=== PATIENT | female | born 1945 | race Caucasian/White ===

== ENCOUNTER 2022-04-24 15:25 | Observation (INO) | payer MEDICAID, MEDICARE ==
[~2022-04-24] VITALS: Ht 162 cm; Wt 83.3 kg
--- NOTE | 2022-04-24 15:42 | ED General ---
General Chief Complaint: Altered Mental Status Stated Complaint: AMS Nursing Triage Note: PT BROUGHT IN BY [facility] FROM [facility] WALK IN WITH COMPLAINT OF AMS, FLU A, POSSIBLE UTI. STATES PT HAS BEEN HAVING INCREASING CONFUSION FOR THE LAST TWO WEEKS. FELL AT HOME THIS MORNING. Source of Information: Patient, EMS, RN/MD Exam Limitations: No Limitations History of Present Illness Date Seen by Provider: Apr 24, 2022 Time Seen by Provider: 15:26 Initial Comments 76-year-old female with past medical history of hypothyroidism coming in via EMS from [facility] walk-in clinic due to concerns for confusion. The patient was in the bathroom earlier today, fell, landed on her right side. Having right hip pain at this time. Got herself up and has been ambulatory since then. States she did not hit her head or pass out. She does not take any blood thinners. While at the clinic she tested positive for influenza A, and they were also concerned she could have a UTI based on the smell of her urine. She has not had any medicines as of yet today other than her thyroid medicine. Denies any headache, vision changes, neck pain, back pain, chest pain, shortness of breath, abdominal pain, nausea, vomiting, diarrhea, focal weakness or numbness, rash, or any other concerns Allergies and Home Medications Allergies Coded Allergies: [id number]-BlT Reductase Inhibitor (Verified Allergy, Unknown, 04/24/22) Patient Home Medication List Home Medication List Reviewed: Yes Review of Systems Review of Systems Constitutional: malaise EENTM: No blurred vision Respiratory: cough; No short of breath Cardiovascular: No chest pain Genitourinary: no symptoms reported Musculoskeletal: see HPI Skin: no symptoms reported Psychiatric/Neurological: No Symptoms Reported Hematologic/Lymphatic: No Symptoms Reported Immunological/Allergic: no symptoms reported All Other Systems Reviewed Negative Unless Noted: Yes Past Kygkesm-Udrzxg-Ejevtj Hx Patient Social History Tobacco Use?: No Use of E-Cig and/or Vaping dev: No Substance use?: No Alcohol Use?: No Pt feels they are or have been: No Past Medical History Surgeries: Yes CABG Reproductive Disorders: No Physical Exam Vital Signs Vital Signs - First Documented 04/24/22 15:26 Temp 38.0 Pulse 88 Resp 25 B/P (MAP) 163/64 (97) Pulse Ox 91 O2 Delivery Room Air Capillary Refill : Less Than 3 Seconds Height, Weight, BMI Height: '" Weight: lbs. oz. kg; 25.00 BMI Method: General Appearance: No Apparent Distress, WD/WN Eyes: Bilateral Eye Normal Inspection HEENT: PERRL/EOMI, Normal ENT Inspection, Pharynx Normal Neck: Full Range of Motion, Normal Inspection, Non Tender, Supple Respiratory: Chest Non Tender, Lungs Clear, Normal Breath Sounds, No Accessory Muscle Use, No Respiratory Distress Cardiovascular: Regular Rate, Rhythm, No Edema, Normal Peripheral Pulses Gastrointestinal: Normal Bowel Sounds, Non Tender, Soft; No Distended, No Guarding Back: Normal Inspection, No CVA Tenderness, No Vertebral Tenderness Extremity: Normal Capillary Refill, Normal Inspection, Normal Range of Motion, Non Tender, No Calf Tenderness, No Pedal Edema Neurologic/Psychiatric: Alert, Oriented x3, No Motor/Sensory Deficits, Normal Mood/Affect, procurement consultant II-XII Norm as Tested Skin: Normal Color, Warm/Dry Lymphatic: No Adenopathy Progress/Results/Core Measures Suspected Sepsis SIRS Temperature: Pulse: 88 Respiratory Rate: 25 Laboratory Tests 04/24/22 15:32: White Blood Count 10.7 Blood Pressure 163 /64 Mean: 97 Laboratory Tests 04/24/22 15:32: Creatinine 1.00, INR Comment 1.1, Platelet Count 241, Total Bilirubin 0.4 Results/Orders Lab Results Laboratory Tests Test 04/24/22 15:32 04/24/22 15:40 Range/Units White Blood Count 10.7 4.3-11.0 10^3/uL Red Blood Count 3.98 3.80-5.11 10^6/uL Hemoglobin 12.2 11.5-16.0 g/dL Hematocrit 38 35-52 % Mean Corpuscular Volume 96 80-99 fL Mean Corpuscular Hemoglobin 31 25-34 pg Mean Corpuscular Hemoglobin Concent 32 32-36 g/dL Red Cell Distribution Width 12.9 10.0-14.5 % Platelet Count 241 130-400 10^3/uL Mean Platelet Volume 10.4 9.0-12.2 fL Immature Granulocyte % (Auto) 0 % Neutrophils (%) (Auto) 78 H 42-75 % Lymphocytes (%) (Auto) 9 L 12-44 % Monocytes (%) (Auto) 13 H 0-12 % Eosinophils (%) (Auto) 0 0-10 % Basophils (%) (Auto) 0 0-10 % Neutrophils # (Auto) 8.3 H 1.8-7.8 X 10^3 Lymphocytes # (Auto) 1.0 1.0-4.0 X 10^3 Monocytes # (Auto) 1.4 H 0.0-1.0 X 10^3 Eosinophils # (Auto) 0.0 0.0-0.3 10^3/uL Basophils # (Auto) 0.0 0.0-0.1 10^3/uL Immature Granulocyte # (Auto) 0.0 0.0-0.1 10^3/uL Prothrombin Time 14.4 12.2-14.7 SEC INR Comment 1.1 0.8-1.4 Sodium Level 138 135-145 MMOL/L Potassium Level 3.3 L 3.6-5.0 MMOL/L Chloride Level 104 98-107 MMOL/L Carbon Dioxide Level 23 21-32 MMOL/L Anion Gap 11 5-14 MMOL/L Blood Urea Nitrogen 28 H 7-18 MG/DL Creatinine 1.00 0.60-1.30 MG/DL Estimat Glomerular Filtration Rate 59 BUN/Creatinine Ratio 28 Glucose Level 107 H 70-105 MG/DL Calcium Level 8.8 8.5-10.1 MG/DL Corrected Calcium 8.8 8.5-10.1 MG/DL Magnesium Level 2.2 1.6-2.4 MG/DL Total Bilirubin 0.4 0.1-1.0 MG/DL Aspartate Amino Transf (AST/SGOT) 31 5-34 U/L Alanine Aminotransferase (ALT/SGPT) 19 0-55 U/L Alkaline Phosphatase 52 40-136 U/L Troponin I 0.039 H <0.028 NG/ML Total Protein 6.8 6.4-8.2 GM/DL Albumin 4.0 3.2-4.5 GM/DL Lipase 13 8-78 U/L Urine Color YELLOW Urine Clarity CLEAR Urine pH 6.0 5-9 Urine Specific [place] 1.025 H 1.016-1.022 Urine Protein 1+ H NEGATIVE Urine Glucose (UA) NEGATIVE NEGATIVE Urine Ketones 1+ H NEGATIVE Urine Nitrite NEGATIVE NEGATIVE Urine Bilirubin NEGATIVE NEGATIVE Urine Urobilinogen 0.2 < = 1.0 MG/DL Urine Leukocyte Esterase NEGATIVE NEGATIVE Urine RBC (Auto) 1+ H NEGATIVE Urine RBC NONE /HPF Urine WBC 0-2 /HPF Urine Squamous Epithelial Cells NONE /HPF Urine Renal Epithelial Cells NONE /HPF Urine Crystals NONE /LPF Urine Bacteria NEGATIVE /HPF Urine Casts NONE /LPF Urine Mucus SMALL H /LPF Urine Culture Indicated NO Urine Opiates Screen NEGATIVE NEGATIVE Urine Oxycodone Screen NEGATIVE NEGATIVE Urine Methadone Screen NEGATIVE NEGATIVE Urine Propoxyphene Screen NEGATIVE NEGATIVE Urine Barbiturates Screen NEGATIVE NEGATIVE Ur Tricyclic Antidepressants Screen NEGATIVE NEGATIVE Urine Phencyclidine Screen NEGATIVE NEGATIVE Urine Amphetamines Screen NEGATIVE NEGATIVE Urine Methamphetamines Screen NEGATIVE NEGATIVE Urine Benzodiazepines Screen NEGATIVE NEGATIVE Urine Cocaine Screen NEGATIVE NEGATIVE Urine Cannabinoids Screen NEGATIVE NEGATIVE My Orders Orders - EDY BLAS MD Ct Head Wo (04/24/22 15:35) Cbc With Automated Diff (04/24/22 15:35) Comprehensive Metabolic Panel (04/24/22 15:35) Drug Screen Stat (Urine) (04/24/22 15:35) Lipase (04/24/22 15:35) Magnesium (04/24/22 15:35) Protime With Inr (04/24/22 15:35) Ua Culture If Indicated (04/24/22 15:35) Chest 1 View, Ap/Pa Only (04/24/22 15:35) Pelvis With Right Hip 2-3views (04/24/22 15:35) Acetaminophen Tablet (Tylenol Tablet) (04/24/22 15:45) Troponin I Amanda (04/24/22 15:35) Ekg Tracing (04/24/22 15:35) Thyroid Stimulating Hormone (04/24/22 16:26) Ed Admission (Communication) (04/24/22 16:36) Medications Given in ED Current Medications Medications Dose Ordered Sig/Faustino Route Start Time Stop Time Status Last Admin Dose Admin Acetaminophen 1,000 mg ONCE ONCE PO 04/24/22 15:45 04/24/22 15:46 DC 04/24/22 15:50 1,000 MG Vital Signs/I&O 04/24/22 04/24/22 15:26 15:26 Temp 38.0 Pulse 88 Resp 25 B/P (MAP) 163/64 (97) Pulse Ox 91 O2 Delivery Room Air Room Air Capillary Refill : Less Than 3 Seconds Blood Pressure Mean: 97 Progress Note : Progress Note 76-year-old female with above history coming in after a fall from questionable syncope versus mechanical. The patient was febrile on presentation but otherwise with unremarkable vital signs. EKG normal sinus with no acute ischemic changes. IV was placed and basic labs were obtained including cardiac biomarkers. Troponin was positive with this. She also has influenza A so this could be myocarditis versus type II NSTEMI from demand in the setting of her influenza. CT head with no acute findings. I discussed the case with Dr. Galeana who admit the patient under observation status for further evaluation and management. I then contacted Dr. Sotelo for consultation. ECG Initial ECG Impression Date: Apr 24, 2022 Initial ECG Impression Time: 15:45 Initial ECG Rate: 87 Initial ECG Rhythm: Normal Sinus Comment Narrow QRS, normal axis, no significant ST changes or T wave abnormalities. Diagnostic Imaging Diagonstic Imaging: Xray (chest, pelvis, right hip), CT (head) Comments NAME: SAWYER CORDERO [facility] REC#: [id number] PT STATUS: REG ER : 1945 PHYSICIAN: EDY BLAS MD ADMIT DATE: 04/24/22/ER Draft Date of Exam:04/24/22 PELVIS WITH RIGHT HIP 2-3VIEWS iNDICATION: Fall, pain. FINDINGS: AP pelvis and two-view right hip showed no bony avulsion, articular collapse or other fracture pattern. Atherosclerotic vascular calcifications and surgical clips chronic. No symphyseal or SI joint diastases. Air-containing rectal vault nondisplaced. IMPRESSION: No acute-appearing abnormality. Dictated on workstation # [id number] Dict: 04/24/22 1626 Trans: 04/24/22 1629 [facility] [id number] Interpreted by: SALLY GARRETT Electronically signed by: [facility] [place], [place] NAME: SAWYER CORDERO [facility] REC#: [id number] PT STATUS: REG ER : 1945 PHYSICIAN: EDY BLAS MD ADMIT DATE: 04/24/22/ER Signed Date of Exam:04/24/22 CHEST 1 VIEW, AP/PA ONLY CHEST 1 VIEW, AP/PA ONLY Indication: Chest trauma Comparison: None available. Findings: No focal airspace disease in the visualized lungs. No pleural effusion or pneumothorax. Cardiomegaly with changes of CABG. No displaced fracture in the visualized ribs. Impression: 1. No acute cardiopulmonary process by portable radiography. Dictated by: Dictated on workstation # [id number] Dict: 04/24/221624 Trans: 04/24/22 1626 [facility] [id number] Interpreted by: LINDSAY SINGH MD Electronically signed by: LINDSAY SINGH MD 04/24/221625 [facility] [place], [place] NAME: SAWYER CORDERO [facility] REC#: [id number] PT STATUS: REG ER : 1945 PHYSICIAN: EDY BLAS MD ADMIT DATE: 04/24/22/ER Draft Date of Exam:04/24/22 CT HEAD WO CLINICAL INDICATION: Patient complains of altered mental status, flu. Possible UTI. Patient has been having increased confusion in the last two weeks. Patient fell at home this morning. EXAM: Axial CT scan of the brain without IV contrast with coronal and sagittal reformatted images. Auto Exposure Controls were utilized during the CT exam to meet ALARA standards for radiation dose reduction. COMPARISON: None FINDINGS: There is no evidence of acute cerebral infarct, intracranial hemorrhage, or gross mass effect. The brain parenchymal volume appears appropriate for patient's age. There is a 5 mm chronic infarct involving the anterior aspect of left caudate. Mild chronic small vessel ischemic disease changes are seen. There is normal samaniego-white matter distinction. There is no significant midline shift or herniation. Empty sella turcica is noted. There is no evidence of hydrocephalus. The basal cisterns are unremarkable. The skull, extracranial soft tissue, and orbits are unremarkable. There is minimal mucosal thickening involving the ethmoid sinus. Temporal bones show no significant abnormality. IMPRESSION: 1: Age-related brain parenchymal changes with no CT evidence of acute intracranial process. There is no intracranial hemorrhage. 2: There is small chronic lacunar infarct involving the left caudate. Dictated on workstation # [id number] Dict: 04/24/221624 Trans: 04/24/22 1637 [facility] [id number] Interpreted by: AYALA VARGAS MD Electronically signed by: Departure Impression Primary Impression: NSTEMI (non-ST elevated myocardial infarction) Additional Impression: Influenza A Disposition: 09 ADMITTED INPATIENT Condition: Stable Admissions Decision to Admit Reason: Admit from ER (General) Decision to Admit/Date: Apr 24, 2022 Time/Decision to Admit Time: 16:25 Departure-Patient Inst. Referrals: NO,LOCAL PHYSICIAN (PCP/Family) Primary Care Physician EDY BLAS MD Apr 24, 2022 15:42
[2022-04-24] MEDS ORDERED: ACETAMINOPHEN 500 MG TAB (TYLENOL) PO ONE (15:45)
[2022-04-24 15:46] LABS: BASOPHILS % (AUTO) 0 % (0-10); EOSINOPHILS % (AUTO) 0 % (0-10); HEMATOCRIT 38 % (35-52); HEMOGLOBIN 12.2 g/dL (11.5-16.0); LYMPHOCYTES % (AUTO) 9 % (12-44); MEAN CORPUSCULAR HEMOGLOBIN 31 pg (25-34); MEAN CORPUSCULAR HGB CONC 32 g/dL (32-36); MEAN CORPUSCULAR VOLUME 96 fL (80-99); MEAN PLATELET VOLUME 10.4 fL (9.0-12.2); MONOCYTES # (AUTO) 1.4 X 10^3 (0.0-1.0); MONOCYTES % (AUTO) 13 % (0-12); NEUTROPHILS # (AUTO) 8.3 X 10^3 (1.8-7.8); NEUTROPHILS % (AUTO) 78 % (42-75); PLATELET COUNT 241 10^3/uL (130-400); WHITE BLOOD COUNT 10.7 10^3/uL (4.3-11.0)
[2022-04-24 15:47] LABS: BILIRUBIN,URINE NEGATIVE (NEGATIVE); CLARITY,URINE CLEAR; COLOR,URINE YELLOW; GLUCOSE, URINE (UA) NEGATIVE (NEGATIVE); KETONES,URINE 1+ (NEGATIVE); LEUKOCYTE ESTERASE ,URINE NEGATIVE (NEGATIVE); NITRITE,URINE NEGATIVE (NEGATIVE); PROTEIN,URINE 1+ (NEGATIVE)
[2022-04-24 15:54] LABS: POTASSIUM 3.3 MMOL/L (3.6-5.0)
[2022-04-24 15:55] LABS: BACTERIA,URINE NEGATIVE /HPF; WBC,URINE 0-2 /HPF
[2022-04-24 15:56] LABS: CALCIUM 8.8 MG/DL (8.5-10.1)
[2022-04-24 15:57] LABS: TOTAL PROTEIN 6.8 GM/DL (6.4-8.2)
[2022-04-24 15:59] LABS: BILIRUBIN,TOTAL 0.4 MG/DL (0.1-1.0); INR 1.1 (0.8-1.4); PROTHROMBIN TIME PATIENT 14.4 SEC (12.2-14.7)
[2022-04-24 16:00] LABS: AMPHETAMINE SCREEN, URINE NEGATIVE (NEGATIVE); BARBITURATE SCREEN URINE NEGATIVE (NEGATIVE); BENZODIAZEPINES SCREEN URINE NEGATIVE (NEGATIVE); CANNABINOID SCREEN, URINE NEGATIVE (NEGATIVE); COCAINE SCREEN URINE NEGATIVE (NEGATIVE); METHADONE STAT NEGATIVE (NEGATIVE); OPIATE SCREEN URINE NEGATIVE (NEGATIVE); OXYCODONE STAT NEGATIVE (NEGATIVE); PROPOXYPHENE STAT NEGATIVE (NEGATIVE); TRICYCLIC ANTIDEPRESSANTS SCRE NEGATIVE (NEGATIVE)
[2022-04-24 16:03] LABS: MAGNESIUM 2.2 MG/DL (1.6-2.4)
--- NOTE | 2022-04-24 16:28 | Diagnostic Imaging Report ---
CHEST 1 VIEW, AP/PA ONLY Indication: Chest trauma Comparison: None available. Findings: No focal airspace disease in the visualized lungs. No pleural effusion or pneumothorax. Cardiomegaly with changes of CABG. No displaced fracture in the visualized ribs. Impression: 1. No acute cardiopulmonary process by portable radiography. Dictated by: Dictated on workstation # [id number]
--- NOTE | 2022-04-24 16:29 | Diagnostic Imaging Report ---
iNDICATION: Fall, pain. FINDINGS: AP pelvis and two-view right hip showed no bony avulsion, articular collapse or other fracture pattern. Atherosclerotic vascular calcifications and surgical clips chronic. No symphyseal or SI joint diastases. Air-containing rectal vault nondisplaced. IMPRESSION: No acute-appearing abnormality. Dictated by: Dictated on workstation # [id number]
--- NOTE | 2022-04-24 16:38 | Diagnostic Imaging Report ---
CLINICAL INDICATION: Patient complains of altered mental status, flu. Possible UTI. Patient has been having increased confusion in the last two weeks. Patient fell at home this morning. EXAM: Axial CT scan of the brain without IV contrast with coronal and sagittal reformatted images. Auto Exposure Controls were utilized during the CT exam to meet ALARA standards for radiation dose reduction. COMPARISON: None FINDINGS: There is no evidence of acute cerebral infarct, intracranial hemorrhage, or gross mass effect. The brain parenchymal volume appears appropriate for patient's age. There is a 5 mm chronic infarct involving the anterior aspect of left caudate. Mild chronic small vessel ischemic disease changes are seen. There is normal samnaiego-white matter distinction. There is no significant midline shift or herniation. Empty sella turcica is noted. There is no evidence of hydrocephalus. The basal cisterns are unremarkable. The skull, extracranial soft tissue, and orbits are unremarkable. There is minimal mucosal thickening involving the ethmoid sinus. Temporal bones show no significant abnormality. IMPRESSION: 1: Age-related brain parenchymal changes with no CT evidence of acute intracranial process. There is no intracranial hemorrhage. 2: There is small chronic lacunar infarct involving the left caudate. Dictated by: Dictated on workstation # [id number]
[2022-04-24 17:15] VITALS: BP 146/95
[2022-04-24 17:30] VITALS: BP 143/76
[2022-04-24] MEDS ORDERED: NS IV 1000 ML 1,000 ML ONE (17:39)
[2022-04-24 17:45] VITALS: BP 157/81
[2022-04-24] MEDS ORDERED: ACETAMINOPHEN 325 MG TABLET PO PRN ×2 (17:45)
[2022-04-24] MEDS ORDERED: diphenhydrAMINE 25 MG TAB (BENADRYL) PO PRN ×2 (17:45)
[2022-04-24] MEDS ORDERED: morphine IMMEDIATE RELEASE 15 MG TABLET PO PRN ×2 (17:45)
[2022-04-24] MEDS ORDERED: cloNIDine 0.1 MG (CATAPRES) TAB PO PRN ×2 (17:45)
[2022-04-24] MEDS ORDERED: LACTULOSE SYRUP 10GM/15ML (ENULOSE) 30ML UDC PO PRN ×2 (17:45)
[2022-04-24] MEDS ORDERED: PATIENT MAY USE OWN MEDS, ALL PO SCH ×2 (17:45)
[2022-04-24] MEDS ORDERED: diphenhydrAMINE 50 MG/ML INJ (BENADRYL) IVP PRN ×2 (17:45)
[2022-04-24] MEDS ORDERED: ONDANSETRON 4 MG/2 ML (SDV) Z0FRAN IV PRN ×2 (17:45)
[2022-04-24] MEDS ORDERED: CALCIUM CARBONATE 500 MG (TUMS) TAB.CHEW PO PRN ×2 (17:45)
[2022-04-24] MEDS ORDERED: ANTACID SUSP 30 ML UDC (MYLANTA) PO PRN ×2 (17:45)
[2022-04-24] MEDS ORDERED: morphine INJ 4 MG/ML 1 ML (VIAL/SYRINGE) IV PRN ×2 (17:45)
[2022-04-24] MEDS ORDERED: MELATONIN 3 MG TABLET PO PRN ×2 (17:45)
[2022-04-24] MEDS ORDERED: ENOXAPARIN 40 MG/0.4 ML (LOVENOX) SYR SC SCH (17:45)
[2022-04-24] MEDS ORDERED: ALPRAZolam 0.5 MG (XANAX) TAB PO PRN ×2 (17:45)
[2022-04-24] MEDS ORDERED: MILK OF MAGNESIA 400 MG/5 ML 30 ML UDC PO PRN ×2 (17:45)
[2022-04-24] MEDS ORDERED: polyethylene glycoL POWDER 17 GM (MIRALAX) PACK PO PRN ×2 (17:45)
[2022-04-24] MEDS ORDERED: NITROGLYCERIN 0.4 MG SL TABS BTL 25'S SL PRN ×2 (17:45)
[2022-04-24] MEDS ORDERED: BISACODYL 10 MG SUPP (DULCOLAX) PR PRN ×2 (17:45)
[2022-04-24] MEDS ORDERED: ONDANSETRON 4 MG (ZOFRAN) ORAL DISSOLVE TAB PO PRN ×2 (17:45)
[2022-04-24] MEDS ORDERED: NS IV 1000 ML 1,000 ML IV SCH ×2 (17:45)
[2022-04-24 18:00] VITALS: BP 167/81
[2022-04-24] MEDS: ENOXAPARIN 40 MG/0.4 ML (LOVENOX) SYR SC SCH (18:07)
[2022-04-24 20:00] VITALS: BP 140/68
[2022-04-24] MEDS: SENNOSIDES 8.6 MG (SENOKOT) TAB PO SCH (20:32)
[2022-04-24] MEDS: DOCUSATE SODIUM 100 MG (COLACE) CAP PO SCH (20:32)
[2022-04-24] MEDS: OSELTAMIVIR 30 MG (TAMIFLU) CAPSULE PO SCH (20:32)
[2022-04-24] MEDS ORDERED: SENNOSIDES 8.6 MG (SENOKOT) TAB PO SCH (21:00)
[2022-04-24] MEDS ORDERED: OSELTAMIVIR 75 MG (TAMIFLU) CAPSULE PO SCH ×2 (21:00)
[2022-04-24] MEDS ORDERED: DOCUSATE SODIUM 100 MG (COLACE) CAP PO SCH (21:00)
[2022-04-24 23:48] VITALS: BP 125/61
[2022-04-25] VITALS (8 sets, daily range): BP systolic 83–138; BP diastolic 51–81
[2022-04-25 05:15] LABS: BASOPHILS % (AUTO) 0 % (0-10); EOSINOPHILS % (AUTO) 0 % (0-10); HEMATOCRIT 39 % (35-52); HEMOGLOBIN 12.2 g/dL (11.5-16.0); LYMPHOCYTES # (AUTO) 0.9 10^3/uL (1.0-4.0); LYMPHOCYTES % (AUTO) 9 % (12-44); MEAN CORPUSCULAR HEMOGLOBIN 31 pg (25-34); MEAN CORPUSCULAR HGB CONC 32 g/dL (32-36); MEAN CORPUSCULAR VOLUME 98 fL (80-99); MEAN PLATELET VOLUME 10.9 fL (9.0-12.2); MONOCYTES # (AUTO) 1.1 10^3/uL (0.0-1.0); MONOCYTES % (AUTO) 11 % (0-12); NEUTROPHILS # (AUTO) 8.4 10^3/uL (1.8-7.8); NEUTROPHILS % (AUTO) 80 % (42-75); PLATELET COUNT 174 10^3/uL (130-400); WHITE BLOOD COUNT 10.6 10^3/uL (4.3-11.0)
[2022-04-25 05:36] LABS: ALANINE AMINOTRANSFERASE 23 U/L (0-55); ALBUMIN 3.4 GM/DL (3.2-4.5); ALKALINE PHOSPHATASE 48 U/L (40-136); BILIRUBIN,TOTAL 0.4 MG/DL (0.1-1.0); BUN/CREATININE RATIO 33; CALCIUM 8.7 MG/DL (8.5-10.1); CARBON DIOXIDE 22 MMOL/L (21-32); CHLORIDE 108 MMOL/L (98-107); CHOLESTEROL 103 MG/DL (< 200); CREATININE SERUM 0.81 MG/DL (0.60-1.30); GFR ESTIMATED 76; GLUCOSE 86 MG/DL (70-105); HDL CHOLESTEROL 28 MG/DL (40-60); POTASSIUM 3.6 MMOL/L (3.6-5.0); SODIUM 143 MMOL/L (135-145); TOTAL PROTEIN 5.9 GM/DL (6.4-8.2); TRIGLYCERIDES 93 MG/DL (<150); VLDL CHOLESTEROL 19 MG/DL (5-40)
[2022-04-25] MEDS ORDERED: RT-ALBUTEROL/IPRATROPIUM 3 ML (DUONEB) VIAL INH PRN (06:30)
[2022-04-25] MEDS ORDERED: ASPIRIN E.C. 81 MG (ECOTRIN) TAB PO SCH (09:00)
[2022-04-25] MEDS: OSELTAMIVIR 30 MG (TAMIFLU) CAPSULE PO SCH ×2 (09:02→20:19)
[2022-04-25] MEDS: SENNOSIDES 8.6 MG (SENOKOT) TAB PO SCH ×2 (09:02→20:19)
[2022-04-25] MEDS: ASPIRIN E.C. 81 MG (ECOTRIN) TAB PO SCH (09:02)
[2022-04-25] MEDS: DOCUSATE SODIUM 100 MG (COLACE) CAP PO SCH ×2 (09:02→20:19)
--- NOTE | 2022-04-25 09:06 | Consultation-Cardiology ---
HPI-Cardiology Cardiology Consultation: Date of Consultation 04/25/22 Date of Admission 04/24/22 Attending Physician Tressa,Local Physician Admitting Physician Admitting Physician: Sujatha Galeana DO Attending Physician: Sujatha Galeana DO Consulting Physician JAMI CONNOLLY JR, MD HPI: Time Seen by a Provider: 09:00 Chief Complaint: REASON FOR CONSULTATION: Coronary artery disease and elevated troponin level. I had the pleasure of seeing Taylor on the cardiac stepdown unit at [facility] in [place], [place] today. She has a history of coronary artery disease detected at cardiac catheterization in 2008. At that time, coronary artery bypass surgery had been recommended. Her cardiac history after the bypass is unclear. She denies having a expediter service order, but states she believes she had "a heart surgery" at [place]. The pt appears to be having issues recalling details of her medical history at this time. The patient was brought to the [facility] ER by EMS from a walk-in clinic after seeking care for hip pain following a fall earlier in the day. The ED reported she was experiencing confusion on arrival as well. The pt states she fell in her bathroom. She remembers the incident and denies passing out or hitting her head. She landed on her right side. She underwent a chest x-ray, hip x-ray, and head CT in the ED. Results were unremarkable, except for a small chronic lacunar infarct in her left caudate seen on head CT. We were consulted for an elevated troponin of 0.039 in the ED. Repeat troponin was 0.036, before it returned back to normal levels today. The patient is exper iencing no chest pain, shortness of breath, unusual ankle swelling, or palpitations at this time. The pt tested positive for Influenza A at the walk- in clinic, and has been coughing lately. The patient quit smoking in 2008. She lives at home with her sister. Certain portions of this document may have been dictated utilizing voice recognition technology. Inherent to this technology, typographical and grammatical errors may exist. As much as I am diligent to identify and correct these mistakes, some errors may remain in the document. Review of Systems-Cardiology Review of Systems Other comments Review of 10 organ systems is as per the history of present illness, otherwise negative. However, due to some apparent confusion and short-term memory loss, her answers may not be entirely reliable. All Other Systems Reviewed Negative Unless Noted: Yes BWM-Hypzth-Syfvua Hx Patient Social History Smoking Status: Former Smoker Have you traveled recently?: No Alcohol Use?: No Pt feels they are or have been: No Tobacco type used: Cigarettes Past Medical History PMH As described under Assessment. Family Medical History Family Medical History: Her father had heart disease but she does not know the specific details. Allergies and Home Medications Allergies Coded Allergies: Cylrjrt-WOF-AfO Reductase Inhibitor (Verified Allergy, Unknown, 04/24/22) Patient Home Medication List Home Medication List Reviewed: Yes Levothyroxine Sodium (Levothyroxine Sodium) 75 Mcg Tablet, 75 MCG PO DAILY, (Reported) Entered as Reported by: GREYSON SERNA on 04/25/22 8995 Last Action: Reviewed Exam Vital Signs Vital Signs Date Time Temp Pulse Resp B/P (MAP) Pulse Ox O2 Delivery O2 Flow Rate FiO2 04/25/22 15:37 36.7 93 18 83/51 (62) 91 Room Air 04/25/22 12:00 2.00 04/25/22 06:22 28 Physical Exam General: Alert. No acute distress. Well nourished and appears stated age. Eye: Extraocular movements are intact. Conjunctivae are clear. There are no xanthelasma. HENT: Normocephalic. Atraumatic. Carotid pulsations 2/2 without bruits. She is edentulous. Neck: Jugular venous pressure does not appear elevated. No thyromegaly appreciated. Respiratory: Lungs are clear to auscultation. Respirations are non-labored. Breath sounds are equal. Symmetrical chest wall expansion. Cardiovascular: Normal rate. Regular rhythm. No murmur. No gallop. Point of maximal impulse is not appear displaced. Good pulses equal in all extremities. No edema. Gastrointestinal: Soft. Normal bowel sounds. Skin: Skin turgor is normal. There is no pallor. Musculoskeletal: No kyphosis or scoliosis appreciated. Neurologic: Alert and oriented to person and she knows she is in a hospital in [place]. Cranial nerves 3-12 appear grossly intact. The patient has good motor tone strength in the upper and lower extremities bilaterally. Psychiatric: Cooperative. Appropriate mood & affect. She does appear to have some baseline confusion and short-term memory loss. Labs Laboratory Tests Test 04/24/22 23:59 04/25/22 05:00 Range/Units Troponin I 0.036 H < 0.028 <0.028 NG/ML White Blood Count 10.6 4.3-11.0 10^3/uL Red Blood Count 3.94 3.80-5.11 10^6/uL Hemoglobin 12.2 11.5-16.0 g/dL Hematocrit 39 35-52 % Mean Corpuscular Volume 98 80-99 fL Mean Corpuscular Hemoglobin 31 25-34 pg Mean Corpuscular Hemoglobin Concent 32 32-36 g/dL Red Cell Distribution Width 12.8 10.0-14.5 % Platelet Count 174 130-400 10^3/uL Mean Platelet Volume 10.9 9.0-12.2 fL Immature Granulocyte % (Auto) 0 % Neutrophils (%) (Auto) 80 H 42-75 % Lymphocytes (%) (Auto) 9 L 12-44 % Monocytes (%) (Auto) 11 0-12 % Eosinophils (%) (Auto) 0 0-10 % Basophils (%) (Auto) 0 0-10 % Neutrophils # (Auto) 8.4 H 1.8-7.8 10^3/uL Lymphocytes # (Auto) 0.9 L 1.0-4.0 10^3/uL Monocytes # (Auto) 1.1 H 0.0-1.0 10^3/uL Eosinophils # (Auto) 0.0 0.0-0.3 10^3/uL Basophils # (Auto) 0.0 0.0-0.1 10^3/uL Immature Granulocyte # (Auto) 0.0 0.0-0.1 10^3/uL Sodium Level 143 135-145 MMOL/L Potassium Level 3.6 3.6-5.0 MMOL/L Chloride Level 108 H 98-107 MMOL/L Carbon Dioxide Level 22 21-32 MMOL/L Anion Gap 13 5-14 MMOL/L Blood Urea Nitrogen 27 H 7-18 MG/DL Creatinine 0.81 0.60-1.30 MG/DL Estimat Glomerular Filtration Rate 76 BUN/Creatinine Ratio 33 Glucose Level 86 70-105 MG/DL Calcium Level 8.7 8.5-10.1 MG/DL Corrected Calcium 9.2 8.5-10.1 MG/DL Total Bilirubin 0.4 0.1-1.0 MG/DL Aspartate Amino Transf (AST/SGOT) 32 5-34 U/L Alanine Aminotransferase (ALT/SGPT) 23 0-55 U/L Alkaline Phosphatase 48 40-136 U/L Total Protein 5.9 L 6.4-8.2 GM/DL Albumin 3.4 3.2-4.5 GM/DL Triglycerides Level 93 <150 MG/DL Cholesterol Level 103 < 200 MG/DL LDL Cholesterol Direct 57 1-129 MG/DL VLDL Cholesterol 19 5-40 MG/DL HDL Cholesterol 28 L 40-60 MG/DL Radiology ECHOCARDIOGRAM (04/25/2022): 1. This is a technically difficult study due to poor image quality secondary to patient's body habitus. 2. Left ventricle: The cavity size is normal. There is mild concentric hypertrophy. Systolic function is normal. The estimated ejection fraction is 60- 65%. There were no regional wall motion abnormalities identified. Doppler parameters are consistent with abnormal left ventricular relaxation (grade 1 diastolic dysfunction). 3. Mitral valve: The annulus is mildly calcified. 4. Aortic valve: There is mild aortic valve sclerosis. 5. Pulmonary arteries: The estimated pulmonary artery systolic pressure is 31 mmHg assuming a right atrial pressure of 5 mmHg. ECHOCARDIOGRAM (12/23/2009): 1. Technically somewhat difficult study. 2. Normal global left ventricular systolic function with an ejection fraction of approximately 65%. 3. Mild mitral and tricuspid regurgitation. 4. Pulmonary artery systolic pressure is estimated to be within normal limits. CARDIAC CATHETERIZATION (08/08/2008): 1. Multivessel coronary artery disease including 80% stenosis in the mid left anterior descending and the distal right coronary arteries (bifurcation lesions). 2. Normal global left ventricular systolic function with an ejection fraction of approximately 70%. 3. No distinct regional wall motion abnormalities are seen on the left ventricular angiography (in the GRANADOS projection). 4. Elevated left ventricular end-diastolic pressure, indicative of moderate diastolic dysfunction of the left ventricle. 5. No significant mitral regurgitation. ECG Impression ECG Comment Electrocardiogram from the emergency room in 04/24 shows sinus rhythm with left atrial abnormality, 1 isolated premature ventricular complexes and nonspecific ST-T wave changes. Electrocardiogram from 04/25 shows sinus rhythm with left atrial abnormality. Diagnosis/Problems Diagnosis/Problems (1) Troponin level elevated Assessment & Plan: She has borderline elevation of the troponin level that then became undetectable. She is not having any symptoms of angina and there are no ischemic changes on her electrocardiogram. She has normal ejection fraction noted on her echocardiogram. I do not think she had a non-ST elevation myocardial infarction. I recommend she be started on low strength aspirin. Her cholesterol level is very low on no statin medication. At some point, we may want to consider an ischemic evaluation but this could certainly be done as an outpatient. (2) Coronary artery disease without angina pectoris Status: Chronic Assessment & Plan: She had previous coronary bypass surgery in 2008. She does not recall how many bypasses grafts she had nor does she recall what hospital she had surgery. She has not seen a expediter service order in many years. She just barely started seeing a primary care provider about 1 month ago. As above, I recommend she be started on low strength aspirin. I do not see any indication for beta-mei at this time. Given her very low LDL level, I am not sure she would see much benefit from a statin medication. In light of the borderline abnormal troponin levels, I recommended nuclear stress test following discharge. (3) Influenza A Status: Acute Assessment & Plan: This is being managed by the hospitalist. Unclear whether or not this had anything to do with her elevated troponin level. Problem Qualifiers (1) Coronary artery disease without angina pectoris: Coronary Disease-Associated Artery/Lesion type: [place] artery JAMI CONNOLLY JR, MD Apr 25, 2022 09:06
--- NOTE | 2022-04-25 11:48 | Occupational Therapy Eval ---
OT Evaluation-General/PLF Medical Diagnosis Admission Date Apr 24, 2022 at 16:36 Medical Diagnosis: NSTEMI Onset Date: Apr 24, 2022 Therapy Diagnosis Therapy Diagnosis: Reduced ADL status Precautions Precautions/Isolations: Droplet Isolation, Standard Precautions Referral Physician: Lissett Referral Reason: Evaluation/Treatment Medical History Current History Pt came to ER from [facility] walk-in for AMS, and flu A. Pt lives in her home with her sister. She was independent with all ADLs. She does not drive, so her sister goes to get groceries. Her sister and her share household duties of cooking/cleaning. She was not using any AE at [facility]. Reviewed History: Yes Social History Home: Single Level Current Living Status: Other Family Entry Into Home: Stairs With Railing Steps Into Home: 4 ADL-Prior Level of Function SCALE: Activities may be completed with or without assistive devices. 9-Glfltqyccq-glbmtuh completes the activity by him/herself with no assistance from a helper. 5-Set-up or Clean-up Assistance-helper sets up or cleans up; patient completes activity. [place] assists only prior to or following the activity. 4-Supervision or Touching Assistance-helper provides verbal cues and/or touching/steadying and/or contact guard assistance as patient completes activity. Assistance may be provided throughout the activity or intermittently. 3-Partial/Moderate Assistance-helper does LESS THAN HALF the effort. [place] lifts, holds or supports trunk or limbs, but provides less than half the effort. 2-Substantial/Maximal Assistance-helper does MORE THAN HALF the effort. [place] lifts or holds trunk or limbs and provides more than half the effort. 8-Khsehvbtz-egekzu does ALL the effort. Patient does none of the effort to complete the activity. Or, the assistance of 2 or more helpers is required for the patient to complete the activity. If activity was not attempted, code reason: 7-Patient Refused. 9-Not Applicable-not attempted and the patient did not perform the activity before the current illness, exacerbation or injury. 10-Not Attempted due to Environmental Limitations-(lack of equipment, weather restraints, etc.). 88-Not Attempted due to Medical Conditions or Safety Concerns. Self Care: Independent Functional Cognition: Independent DME/Equipment: Tub/Shower Drive Self: No OT Current Status Subjective Pt was laying in bed upon arrival. She agrees to therapy eval. Appearance Pt left sitting up in recliner with all needs within reach. Mental Status/Objective Patient Orientation: Person, Place, Time, Situation Attachments: Telemetry Current Glasses/Contacts: Yes Hearing Aids: No Dentures/Partials: No Hand Dominance: Right Upper Extremity ROM ~160 ROM at shoulders She reported this is baseline for her Upper Extremity Strength Energy And Conservation Technician strength: moderately impaired 3-/5 at shoulders ADL-Treatment Lower Body Dressing (QC): 4 (per clinical judgement) On/Off Footwear (QC): 3 Sit<>stand: CGA. Pt appeared slightly unsteady during standing. Pt ambulated to recliner with no AD and no LOB. Pt doffed socks with increased time and required min assist for donning socks. Her first attempts to doff/don socks was her reaching down to the floor to perform task. After demonstration, pt attempted figure 4 method with assist to hold leg up and was able to perform task with much more ease. Although pt stated that she felt like she was back at baseline, she does appear to need some assistance with ADLs. She would benefit from short term skilled OT at this time to address weakness, and ADLs. Education OT Patient Education: Correct positioning, Energy conservation, Modified ADL techniques, Progress toward Goal/Update tx plan, Purpose of tx/functional activities, Reviewed precautions, Rehab process, Safety issues Teaching Recipient: Patient Teaching Methods: Demonstration, Discussion Response to Teaching: Verbalize Understanding, Reinforcement Needed OT Penitentiary Goals Drier Tender Naphthalene Goals Time Frame: May 11, 2022 Oral Hygiene (QC): 6 Toileting Hygiene (QC): 6 Shower/Bathe Self (QC): 5 Upper Body Dressing (QC): 6 Lower Body Dressing (QC): 6 On/Off Footwear (QC): 6 Additional Goals: 1-Demonstrate ADL Tasks, 2-Verbalize Understanding, 3- ImproveStrength/Gely 1=Demonstrate adherence to instructed precautions during ADL tasks. 2=Patient will verbalize/demonstrate understanding of assistive devices/modifications for ADL. 3=Patient will improve strength/tolerance for activity to enable patient to perform ADL's. OT Education/Plan Problem List/Assessment Assessment: Decreased Activ Tolerance, Decreased Safety Aware, Decreased UE Strength, Impaired Coordination, Impaired Funct Balance, Impaired I ADL's, Impaired Self-Care Skills Discharge Recommendations Plan/Recommendations: Continue POC Equpiment Recommendations-D/C: Bath Chair Comment ongoing assessment Treatment Plan/Plan of Care Treatment,Training & Education: Yes Patient would benefit from OT for education, treatment and training to promote independence in ADL's, mobility, safety and/or upper extremity function for ADL's. Plan of Care: ADL Retraining, Functional Mobility, Group Exercise/Act as Ind, UE Funct Exercise/Act Treatment Duration: May 11, 2022 Frequency: 3 times per week (3-5 x/week) Estimated Hrs Per Day: .25 hour per day Agreement: Yes Rehab Potential: Fair Time Start Time: 11:20 Stop Time: 11:37 Total Time Billed (hr/min): 17 Billed Treatment Time 1 visit Salma Hollingsworth OT Apr 25, 2022 11:48
--- NOTE | 2022-04-25 11:48 | History & Physical-Hospitalist ---
RUBEN ARCHER 04/25/22 1148: History of Present Illness HPI/Chief Complaint Patient is a 76 yo woman seen in ER for AMS. She has a history of hypothyroidism and was found to be positive for influenza A at [facility]. Upon arrival to the ER, she was found to have a mildly elevated troponin of 0.039. She was noted to have experienced a fall in her bathroom yesterday before her arrival in which she states that she fell on her right side. She denies hitting her head or losing consciousness. Chest and hip x-ray found no acute process, nor did head CT aside from a chronic lacunar infarct in the left caudate nucleus. She has difficulty remembering her medical history, states she has a fam hx of heart disease (father). She denies chest pain, SOB, N/V, constipation or diarrhea. She is pleasant and cooperative and states that she is ready to get back home. Source: patient, RN/MD, RN notes reviewed Exam Limitations: clinical condition (Patient seems to be mildly confused with some issues in short and usp memory) Date Seen 04/25/22 Time Seen by a Provider: 09:45 Attending Physician No,Local Physician PCP Admitting Physician: Sujatha Landry DO Attending Physician: Sujatha Landry DO Referring Physician Date of Admission Apr 24, 2022 at 16:36 Home Medications & Allergies Home Medications Reviewed patient Home Medication Reconciliation performed by pharmacy medication reconciliations laboratory mechanical technician and/or nursing. Patients Allergies have been reviewed. Allergies Allergies Coded Allergies Oyqabpw-PLG-DhL Reductase Inhibitor (Verified Allergy, Unknown, 04/24/22) Past Fkuqjjo-Xuzxzw-Eihhhe Hx Patient Social History Tobacco Use?: No Tobacco type used: Cigarettes Smoking Status: Former Smoker Smokeless Tobacco Frequency: Never a User Use of E-Cig and/or Vaping dev: No Substance use?: No Alcohol Use?: No Pt feels they are or have been: No Immunizations Up To Date Tetanus Booster (TDap): Unknown Hepatitis A: No Hepatitis B: No Current Status status: No status: No Advance Directives: No Communicates: Verbally Primary Language: Egyptian Preferred Spoken Language: Egyptian Is interpretation needed?: No Sensory deficits: Vision impairment Implanted or Applied Medical D: None Past Medical History Surgeries: CABG Hypothyroidsim Family Medical History Heart Disease (Father) Review of Systems Constitutional: no symptoms reported EENTM: see HPI, no symptoms reported Respiratory: see HPI; No short of breath Cardiovascular: no symptoms reported, see HPI; No chest pain; Hx of Intervention Gastrointestinal: no symptoms reported; No abdominal pain, No constipation, No diarrhea, No nausea, No vomiting Genitourinary: no symptoms reported : No Musculoskeletal: back pain (Pain on her posterior right side after her fall) Skin: no symptoms reported Psychiatric/Neurological: See HPI; Denies Headache Physical Exam Physical Exam Vital Signs Vital Signs - First Documented 04/24/22 04/24/22 04/25/22 15:26 17:13 06:22 Temp 38.0 Pulse 88 Resp 25 B/P (MAP) 163/64 (97) Pulse Ox 91 O2 Delivery Room Air O2 Flow Rate 2.00 FiO2 28 Capillary Refill : Less Than 3 Seconds Height, Weight, BMI Height: 162 cm Weight: 80.7 kg; 30.74 BMI Method: General Appearance: No Apparent Distress, WD/WN Neck: Full Range of Motion, Normal Inspection, Non Tender, Supple; No Carotid Bruit, No JVD Respiratory: Chest Non Tender, Lungs Clear, Normal Breath Sounds, No Accessory Muscle Use, No Respiratory Distress Cardiovascular: Regular Rate, Rhythm, No Edema, No Gallop, No JVD, No Murmur, Normal Peripheral Pulses Gastrointestinal: Normal Bowel Sounds, Non Tender, Soft Extremity: Normal Capillary Refill, Non Tender, Swelling (Trace swelling in ankles) Neurologic/Psychiatric: Alert, Oriented x3, No Motor/Sensory Deficits, Normal Mood/Affect, Other (Patient has difficulty recalling her medical history unprompted) Skin: Normal Color, Warm/Dry Results Results/Procedures Labs Laboratory Tests 04/24/22 15:32 04/25/22 05:00 Patient resulted labs reviewed. Imaging ECHOCARDIOGRAM (12/23/2009): 1. Technically somewhat difficult study. 2. Normal global left ventricular systolic function with an ejection fraction of approximately 65%. 3. Mild mitral and tricuspid regurgitation. 4. Pulmonary artery systolic pressure is estimated to be within normal limits. CARDIAC CATHETERIZATION (08/08/2008): 1. Multivessel coronary artery disease including 80% stenosis in the mid left anterior descending and the distal right coronary arteries (bifurcation lesions). 2. Normal global left ventricular systolic function with an ejection fraction of approximately 70%. 3. No distinct regional wall motion abnormalities are seen on the left ventricular angiography (in the GRANADOS projection). 4. Elevated left ventricular end-diastolic pressure, indicative of moderate diastolic dysfunction of the left ventricle. 5. No significant mitral regurgitation. Electrocardiogram from the emergency room in 04/24 shows sinus rhythm with left atrial abnormality, 1 isolated premature ventricular complexes and nonspecific ST-T wave changes. Electrocardiogram from 04/25 shows sinus rhythm with left atrial abnormality. -Rubén Sotelo MD Meds As stated in medications list, lovenox for DVT prophylaxis, oseltamavir for influenza A infection Only known home med is levothyroxine for hypothyroidism Assessment/Plan Admission Diagnosis AMS Admission Status: Observation Assessment and Plan AMS - baseline mental status unknown. Patient is currently experiencing difficulty in recalling medical history and past medical events. Patient is possibly encephalopathic due to influenza infection Hypothyroidism - continue medical management Influenza A - oseltamavir, IV fluids Elevated troponin - troponin levels returned to normal, cardiology consult appreciated Clinical Quality Measures DVT/VTE Risk/Contraindication: VTE Addressed: Yes VTE Present on Admission: No SUJATHA LANDRY DO 04/25/222034: History of Present Illness HPI/Chief Complaint CC: Influenza B with NSTEMI HPI: This is a 76 yr old female with a past medical history of dementia. She lives with her daughter. She presented to the ER with fever and weakness. She was found to have Influenza B. She was placed on Tamiflu. Elevated troponin prompted cardiology consultation. Pt is doing well and moving down to the floor. Conservative management indicated. Source: patient, RN/MD Exam Limitations: clinical condition (Patient seems to be mildly confused with some issues in short and truck terminal manager memory) Past Cxbbbnc-Lztuhv-Mhwpkr Hx Patient Social History Marrital Status: single Employed/Student: retired Smoking Status: Former Smoker Past Medical History Coronary Artery Disease Hypothyroidsim Review of Systems Constitutional: see HPI Physical Exam Physical Exam General Appearance: No Apparent Distress, Chronically ill Respiratory: Lungs Clear, Normal Breath Sounds Cardiovascular: Regular Rate, Rhythm Assessment/Plan Admission Diagnosis Admission Status: Observation Supervisory-Addendum Brief Verification & Attestation Participated in pt care: history, MDM, physical Personally performed: exam, history, MDM, supervision of care Care discussed with: Medical Student Procedures: n/a Results interpretation: Verified all documentation Verification and Attestation of Medical Student E/M Service A medical student performed and documented this service in my presence. I reviewed and verified all information documented by the medical student and made modifications to such information, when appropriate. I personally performed the physical exam and medical decision making. Sujatha Landry, Apr 25, 2022,20:36 RUBEN ARCHER Apr 25, 2022 11:48 SUJATHA LANDRY DO Apr 25, 2022 20:35
[2022-04-25] MEDS ORDERED: LEVO75TA6 PO (12:35)
--- NOTE | 2022-04-25 12:48 | Physical Therapy Evaluation ---
PT Evaluation-General Medical Diagnosis Admission Date Apr 24, 2022 at 16:36 Medical Diagnosis: NSTEMI Onset Date: Apr 24, 2022 Therapy Diagnosis Therapy Diagnosis: Generalized Weakness Precautions Precautions/Isolations: Droplet Isolation, Fall Prevention, Standard Precautions Weight Bear Status Right Lower Extremity: Right Full Weight Bearing Left Lower Extremity: Left Full Weight Bearing Referral Physician: Sujatha Galeana DO Reason for Referral: Evaluation/Treatment Medical History Additional Medical History CABG, Hypothyroidsim Reviewed History: Yes Social History Home: Single Level Current Living Status: Other Family (sister) Entry Into Home: Stairs With Railing PT Steps Into Home: 4 Prior Prior Level of Function SCALE: Activities may be completed with or without assistive devices. 8-Txxeznixzt-ybpimza completes the activity by him/herself with no assistance from a helper. 5-Set-up or Clean-up Assistance-helper sets up or cleans up; patient completes activity. [place] assists only prior to or following the activity. 4-Supervision or Touching Assistance-helper provides verbal cues and/or touching/steadying and/or contact guard assistance as patient completes activity. Assistance may be provided throughout the activity or intermittently. 3-Partial/Moderate Assistance-helper does LESS THAN HALF the effort. [place] lifts, holds or supports trunk or limbs, but provides less than half the effort. 2-Substantial/Maximal Assistance-helper does MORE THAN HALF the effort. [place] lifts or holds trunk or limbs and provides more than half the effort. 9-Dvjhrooae-mfpcgb does ALL the effort. Patient does none of the effort to complete the activity. Or, the assistance of 2 or more helpers is required for the patient to complete the activity. If activity was not attempted, code reason: 7-Patient Refused. 9-Not Applicable-not attempted and the patient did not perform the activity before the current illness, exacerbation or injury. 10-Not Attempted due to Environmental Limitations-(lack of equipment, weather restraints, etc.). 88-Not Attempted due to Medical Conditions or Safety Concerns. Bed Mobility: 6 Transfers (B,C,W/C): 6 Gait: 6 Stairs: 6 Wheelchair Mobility: 9 Indoor Mobility (Ambulation): Independent Stairs: Independent Prior Devices Use: None PT Evaluation-Current Subjective Patient in bed pre-tx, reports 8/10 in back when standing, agrees to PT. Pt/Family Goals Get back to independence at home. Objective Patient Orientation: Person, Place, Situation ROM/Strength ROM Lower Extremities WFL Strength Lower Extremities RLE (hip flexion 4-/5, knee flexion 4-/5, knee extension 5/5, DF 5/5), LLE (hip flexion 4-/5, knee flexion 4-/5, knee extension 5/5, DF 5/5) Neuromuscular (Tone, Coordination, Reflexes) WNL coordination Sensory Hearing: Functional Hand Dominance: Right Sensation Right Lower Extremit: Intact Sensation Left Lower Extremity: Intact Transfers Roll Left to Right (QC): 4 (SBA) Lying to Sitting/Side of Bed(Q: 4 (SBA) Sit to Stand (QC): 4 (CGA) Gait Does the Patient Walk?: Yes Mode of Locomotion: Walk Anticipated Mode of Locomotion: Walk Walk 10 feet (QC): 4 Distance: 10' Gait Assistive Device: None Comments/Gait Description Patient walks with decreased gait speed, foot clearance, and step length. Wheelchair Training Does the Pt Use a Wheelchair?: No Balance Sitting Static: Normal Sitting Dynamic: Normal Standing Static: Normal Standing Dynamic: Fair Treatment LE Strengthening, seated exercises x10 (AP, LAQ) Assessment/Needs Patient has difficulty maintaining oxygen above 90% with activity, needs cues to purse lip breathe, and diminished strength. Patient in recliner post-tx with nurse call, tray, phone, and all needs met. Rehab Potential: Fair PT System Admin Goals System Admin Goals PT System Admin Goals Time Frame: May 02, 2022 Roll Left & Right (QC): 6 Sit to Lying (QC): 6 Lying-Sitting on Side/Bed(QC): 6 Sit to Stand (QC): 6 Chair/Bfy-tz-Hratk Xfer(QC): 6 Toilet Transfer (QC): 6 Does the Patient Walk: Yes Walk 10 feet (QC): 6 Walk 50ft with 2 Turns (QC): 6 Walk 150 ft (QC): 6 Walking 10ft on Uneven Surface: 6 1 Step (curb) (QC): 6 4 Steps (QC): 6 12 Steps (QC): 9 Picking up an Object (QC): 6 Does the Pt use WC or Scooter?: No Wheel 50 feet with 2 turns (QC: 9 Wheel 150 feet: 9 PT Plan Problem List Problem List: Activity Tolerance, Functional Strength, Safety, Balance, Gait, Transfer, Bed Mobility, ROM Treatment/Plan Treatment Plan: Continue Plan of Care Treatment Plan: Bed Mobility, Education, Functional Activity Gely, Functional Strength, Gait, Safety, Therapeutic Exercise, Transfers Treatment Duration: May 02, 2022 Frequency: 6 times per week Estimated Hrs Per Day: .25 hour per day Patient and/or Family Agrees t: Yes Safety Risks/Education Patient Education: Gait Training, Transfer Techniques, Correct Positioning, Safety Issues Teaching Recipient: Patient Teaching Methods: Demonstration, Discussion Response to Teaching: Reinforcement Needed Discharge Recommendations Plan Patient will perform bed mobility and transfer training, endurance and balance training, stairs and gait training to be more independent at home. Therapy Discharge Recommendati: Home & Family Time Time In: 1120 Time Out: 1137 Total Billed Treatment Time: 17 Total Billed Treatment 1 visit EVM 17min ULYSSES LIZARRAGA PT Apr 25, 2022 12:48
[2022-04-25] MEDS: ENOXAPARIN 40 MG/0.4 ML (LOVENOX) SYR SC SCH (18:06)
[2022-04-25] MEDS: MICONAZOLE 2% POWDER (DESENEX AF) 90 GM TOP SCH (20:19)
[2022-04-26 00:43] VITALS: BP 122/72
[2022-04-26 04:12] VITALS: BP 136/73
[2022-04-26] MEDS: LEVOTHYROXINE 75 MCG (LEVOTHROID) TABLET PO SCH (05:49)
[2022-04-26 05:52] LABS: BASOPHILS % (AUTO) 0 % (0-10); EOSINOPHILS % (AUTO) 0 % (0-10); HEMATOCRIT 34 % (35-52); LYMPHOCYTES # (AUTO) 0.8 10^3/uL (1.0-4.0); LYMPHOCYTES % (AUTO) 10 % (12-44); MEAN CORPUSCULAR HEMOGLOBIN 31 pg (25-34); MEAN CORPUSCULAR HGB CONC 32 g/dL (32-36); MEAN CORPUSCULAR VOLUME 96 fL (80-99); MEAN PLATELET VOLUME 10.7 fL (9.0-12.2); MONOCYTES # (AUTO) 0.7 10^3/uL (0.0-1.0); MONOCYTES % (AUTO) 9 % (0-12); NEUTROPHILS # (AUTO) 6.2 10^3/uL (1.8-7.8); NEUTROPHILS % (AUTO) 81 % (42-75); PLATELET COUNT 201 10^3/uL (130-400); WHITE BLOOD COUNT 7.7 10^3/uL (4.3-11.0)
[2022-04-26 06:17] LABS: ALBUMIN 3.2 GM/DL (3.2-4.5); BILIRUBIN,TOTAL 0.3 MG/DL (0.1-1.0); CALCIUM 8.4 MG/DL (8.5-10.1); CREATININE SERUM 0.73 MG/DL (0.60-1.30); POTASSIUM 3.4 MMOL/L (3.6-5.0); TOTAL PROTEIN 5.7 GM/DL (6.4-8.2)
[2022-04-26 08:10] VITALS: BP 134/61
[2022-04-26] MEDS: ASPIRIN E.C. 81 MG (ECOTRIN) TAB PO SCH (08:46)
[2022-04-26] MEDS: DOCUSATE SODIUM 100 MG (COLACE) CAP PO SCH ×2 (08:46→21:00)
[2022-04-26] MEDS: OSELTAMIVIR 30 MG (TAMIFLU) CAPSULE PO SCH (08:47)
[2022-04-26] MEDS: SENNOSIDES 8.6 MG (SENOKOT) TAB PO SCH ×2 (08:47→21:00)
[2022-04-26] MEDS: MICONAZOLE 2% POWDER (DESENEX AF) 90 GM TOP SCH ×2 (08:50→21:00)
[2022-04-26] MEDS ORDERED: ASPI-1238 PO (10:38)
--- NOTE | 2022-04-26 11:01 | Occupational Ther Daily Note ---
OT Current Status-Daily Note Subjective Pt in recliner, alert. Pt agrees to therapy. C/o moderate hip pain that improved with mobility. Did not rate pain. Mental Status/Objective Patient Orientation: Person, Place, Time, Situation ADL-Treatment Pt ambulated in room ~15 feet, SBA. Pt stood at sink, washed face and completed oral hygiene independently. Pt completed toileting transfer and hygiene independently. Pt made comfortable in recliner at end of session. Phone/call light in reach. All needs met in room. Therapy Code Descriptions/Definitions Functional [place] Measure: 0=Not Assessed/NA 4=Minimal Assistance 1=Total Assistance 5=Supervision or Setup 2=Maximal Assistance 6=Modified [place] 3=Moderate Assistance 7=Complete IndependenceSCALE: Activities may be completed with or without assistive devices. 0-Faifcyzyki-ofsnwiw completes the activity by him/herself with no assistance from a helper. 5-Set-up or Clean-up Assistance-helper sets up or cleans up; patient completes activity. [place] assists only prior to or following the activity. 4-Supervision or Touching Assistance-helper provides verbal cues and/or touching/steadying and/or contact guard assistance as patient completes activi ty. Assistance may be provided throughout the activity or intermittently. 3-Partial/Moderate Assistance-helper does LESS THAN HALF the effort. [place] lifts, holds or supports trunk or limbs, but provides less than half the effort. 2-Substantial/Maximal Assistance-helper does MORE THAN HALF the effort. [place] lifts or holds trunk or limbs and provides more than half the effort. 7-Leqyqjnzy-wtijnf does ALL the effort. Patient does none of the effort to complete the activity. Or, the assistance of 2 or more helpers is required for the patient to complete the activity. If activity was not attempted, code reason: 7-Patient Refused. 9-Not Applicable-not attempted and the patient did not perform the activity before the current illness, exacerbation or injury. 10-Not Attempted due to Environmental Limitations-(lack of equipment, weather restraints, etc.). 88-Not Attempted due to Medical Conditions or Safety Concerns. Oral Hygiene (QC): 6 Toileting Hygiene (QC): 6 Toilet Transfer (QC): 6 OT Senior Data Analyst Goals Long-Term Goals Time Frame: May 11, 2022 Oral Hygiene (QC): 6 Toileting Hygiene (QC): 6 Shower/Bathe Self (QC): 5 Upper Body Dressing (QC): 6 Lower Body Dressing (QC): 6 On/Off Footwear (QC): 6 Additional Goals: 1-Demonstrate ADL Tasks, 2-Verbalize Understanding, 3- ImproveStrength/Gely 1=Demonstrate adherence to instructed precautions during ADL tasks. 2=Patient will verbalize/demonstrate understanding of assistive devices/modifications for ADL. 3=Patient will improve strength/tolerance for activity to enable patient to perform ADL's. OT Education/Plan Problem List/Assessment Assessment: Decreased Activ Tolerance, Impaired Self-Care Skills Discharge Recommendations Plan/Recommendations: Continue POC Treatment Plan/Plan of Care Patient would benefit from OT for education, treatment and training to promote independence in ADL's, mobility, safety and/or upper extremity function for ADL's. Plan of Care: ADL Retraining, Functional Mobility, Group Exercise/Act as Ind, UE Funct Exercise/Act Treatment Duration: May 11, 2022 Frequency: 3 times per week (3-5 x/week) Estimated Hrs Per Day: .25 hour per day Agreement: Yes Rehab Potential: Fair Time Start Time: 10:53 Stop Time: 11:14 DATE: Apr 26, 2022 Total Time Billed (hr/min): 21 Billed Treatment Time 1 visit ADL 1 (21 min) YOLY DARBY Apr 26, 2022 11:01
[2022-04-26 12:30] VITALS: BP 138/69
--- NOTE | 2022-04-26 12:38 | Progress Note - Hospitalist ---
RUBEN ARCHER 04/26/22 1238: Subjective HPI/CC On Admission Date Seen by Provider: Apr 26, 2022 Time Seen by Provider: 08:30 CC: Influenza B with NSTEMI HPI: This is a 76 yr old female with a past medical history of dementia. She lives with her daughter. She presented to the ER with fever and weakness. She w as found to have Influenza B. She was placed on Tamiflu. Elevated troponin prompted cardiology consultation. Pt is doing well and moving down to the floor. Conservative management indicated. Subjective/Events-last exam Patient is a 76 yo woman seen in the ER for AMS. She has a history of hypothyroidism and is positive for influenza A. She says she is feeling better this morning. Notes continued pain on her right side from her recent fall as well as a productive cough with yellow colored sputum. Denies chest pain, N/V, or any other new symptoms. Review of Systems General: No Chills, No Fatigue, No Malaise HEENT: No Head Aches, No Visual Changes, No Sore Throat Pulmonary: Dyspnea, Cough (productive) Cardiovascular: No: Chest Pain, Lt Headedness Gastrointestinal: No: Nausea, Vomiting, Abdominal Pain, Diarrhea, Constipation Musculoskeletal: other (general right sided body pain after a recent fall) Neurological: No: Weakness, Numbness, Change in speech Focused Exam Sepsis Stage: Ruled Out Reason for ruling out sepsis: Patient does not meet SIRS criteria for sepsis diagnosis Objective Exam Vital Signs Vital Signs Date Time Temp Pulse Resp B/P (MAP) Pulse Ox O2 Delivery O2 Flow Rate FiO2 04/26/22 10:56 Room Air 04/26/22 08:10 37.1 77 19 134/61 (85) 90 04/25/22 12:00 2.00 04/25/22 06:22 28 Capillary Refill : Less Than 3 Seconds General Appearance: No Apparent Distress, WD/WN HEENT: PERRL/EOMI Neck: Full Range of Motion, Normal Inspection, Non Tender, Supple; No Carotid Bruit, No JVD Respiratory: No Accessory Muscle Use, No Respiratory Distress, Crackles (josé aterally), Wheezing Cardiovascular: Regular Rate, Rhythm, No Edema, No Gallop, No JVD, No Murmur, Normal Peripheral Pulses (Radial and dorsalis pedis) Gastrointestinal: Normal Bowel Sounds, No Organomegaly, No Pulsatile Mass, Non Tender, Soft Back: Normal Inspection, No CVA Tenderness, Other (Right sided posterior thoracic pain from a recent fall) Extremity: Normal Capillary Refill, Normal Inspection, Non Tender, No Calf Tenderness Neurologic/Psychiatric: Alert, Oriented x3, No Motor/Sensory Deficits, Normal Mood/Affect Skin: Normal Color, Warm/Dry Results/Procedures Lab Laboratory Tests 04/26/22 05:30 Patient resulted labs reviewed. Radiology Date of Exam:04/24/22 PELVIS WITH RIGHT HIP 2-3VIEWS iNDICATION: Fall, pain. FINDINGS: AP pelvis and two-view right hip showed no bony avulsion, articular collapse or other fracture pattern. Atherosclerotic vascular calcifications and surgical clips chronic. No symphyseal or SI joint diastases. Air-containing rectal vault nondisplaced. IMPRESSION: No acute-appearing abnormality. Dictated by: Dictated on workstation # [id number] Dict: 04/24/22 1626 Trans: 04/24/221654 CVB [id number] Interpreted by: SALLY GARRETT Electronically signed by: SALLY GARRETT 04/24/222 Date of Exam:04/24/22 CT HEAD WO CLINICAL INDICATION: Patient complains of altered mental status, flu. Possible UTI. Patient has been having increased confusion in the last two weeks. Patient fell at home this morning. EXAM: Axial CT scan of the brain without IV contrast with coronal and sagittal reformatted images. Auto Exposure Controls were utilized during the CT exam to meet ALARA standards for radiation dose reduction. COMPARISON: None FINDINGS: There is no evidence of acute cerebral infarct, intracranial hemorrhage, or gross mass effect. The brain parenchymal volume appears appropriate for patient's age. There is a 5 mm chronic infarct involving the anterior aspect of left caudate. Mild chronic small vessel ischemic disease changes are seen. There is normal samaniego-white matter distinction. There is no significant midline shift or herniation. Empty sella turcica is noted. There is no evidence of hydrocephalus. The basal cisterns are unremarkable. The skull, extracranial soft tissue, and orbits are unremarkable. There is minimal mucosal thickening involving the ethmoid sinus. Temporal bones show no significant abnormality. IMPRESSION: 1: Age-related brain parenchymal changes with no CT evidence of acute intracranial process. There is no intracranial hemorrhage. 2: There is small chronic lacunar infarct involving the left caudate. Dictated by: Dictated on workstation # [id number] Dict: 04/24/221624 Trans: 04/24/22 1746 [id number] [id number] Interpreted by: AYALA VARGAS MD Electronically signed by: AYALA VARGAS MD 04/24/226 Date of Exam:04/24/22 CHEST 1 VIEW, AP/PA ONLY CHEST 1 VIEW, AP/PA ONLY Indication: Chest trauma Comparison: None available. Findings: No focal airspace disease in the visualized lungs. No pleural effusion or pneumothorax. Cardiomegaly with changes of CABG. No displaced fracture in the visualized ribs. Impression: 1. No acute cardiopulmonary process by portable radiography. Dictated by: Dictated on workstation # [id number] Dict: 04/24/221624 Trans: 04/24/221625 [facility] [id number] Interpreted by: LINDSAY SINGH MD Electronically signed by: LINDSAY SINGH MD 04/24/221625 Meds As stated in medications list, lovenox for DVT prophylaxis, oseltamavir for influenza A infection (increased to 75 mg BID) Only known home med is levothyroxine for hypothyroidism Assessment/Plan Assessment and Plan Assess & Plan/Chief Complaint AMS - baseline mental status unknown. Patient is currently experiencing d ifficulty in recalling medical history and past medical events. Patient is possibly encephalopathic due to influenza infection but is less disoriented than yesterday and is alert and oriented x3 Hypothyroidism - continue medical management Influenza A - oseltamavir increased to 75 mg BID, IV fluids Elevated troponin - troponin levels returned to normal, cardiology consult appreciated Clinical Quality Measures DVT/VTE Risk/Contraindication: VTE Addressed: Yes VTE Present on Admission: No SUJATHA LANDRY DO 04/27/22 0506: Subjective Subjective/Events-last exam Patient doing pretty well but she is wheezing Started on azithromycin and nebulizer treatments Objective Exam General Appearance: No Apparent Distress, WD/WN, Chronically ill Respiratory: Crackles (bilaterally), Wheezing Assessment/Plan Assessment and Plan Assess & Plan/Chief Complaint Azithromycin Nebulizers Supervisory-Addendum Brief Verification & Attestation Participated in pt care: history, MDM, physical Personally performed: exam, history, MDM, supervision of care Care discussed with: Medical Student Procedures: n/a Results interpretation: Verified all documentation Verification and Attestation of Medical Student E/M Service A medical student performed and documented this service in my presence. I reviewed and verified all information documented by the medical student and made modifications to such information, when appropriate. I personally performed the physical exam and medical decision making. Sujatha Landry, Apr 27, 2022,05:05 RUBEN ARCHER Apr 26, 2022 12:38 SUJATHA LANDRY DO Apr 27, 2022 05:06
--- NOTE | 2022-04-26 13:15 | Physical Therapy Daily Note ---
PT Daily Note-Current Subjective Patient in recliner pre tx, agrees to PT, has no pain at rest but states she has severe pain in right side and back with activity, she says nurse is aware of it. Pain Section J - Health Conditions 1. Rarely or not at all 2. Occasionally 3. Frequently 4. Almost constantly 8. Unable to answer Pain Effect on Sleep: 2 Pain Interference with Therapy: 2 Pain Interference w/Day-to-Day: 2 Appearance Patient in recliner post tx with nurse call, phone, tray, all needs met. Mental Status Patient Orientation: Person, Place, Situation Transfers SCALE: Activities may be completed with or without assistive devices. 2-Vgloiffszw-udmavyy completes the activity by him/herself with no assistance from a helper. 5-Set-up or Clean-up Assistance-helper sets up or cleans up; patient completes activity. [place] assists only prior to or following the activity. 4-Supervision or Touching Assistance-helper provides verbal cues and/or touching/steadying and/or contact guard assistance as patient completes activity. Assistance may be provided throughout the activity or intermittently. 3-Partial/Moderate Assistance-helper does LESS THAN HALF the effort. [place] lifts, holds or supports trunk or limbs, but provides less than half the effort. 2-Substantial/Maximal Assistance-helper does MORE THAN HALF the effort. [place] lifts or holds trunk or limbs and provides more than half the effort. 5-Kryrrhzoh-lpwwtv does ALL the effort. Patient does none of the effort to complete the activity. Or, the assistance of 2 or more helpers is required for the patient to complete the activity. If activity was not attempted, code reason: 7-Patient Refused. 9-Not Applicable-not attempted and the patient did not perform the activity before the current illness, exacerbation or injury. 10-Not Attempted due to Environmental Limitations-(lack of equipment, weather restraints, etc.). 88-Not Attempted due to Medical Conditions or Safety Concerns. Sit to Stand (QC): 4 Chair/Kfs-ij-Pmayy Xfer(QC): 4 CGA Weight Bearing Right Lower Extremity: Right Full Weight Bearing Left Lower Extremity: Left Full Weight Bearing Gait Training Distance: 60' Walk 10 feet (QC): 4 Walk 50 ft with 2 Turns(QC): 4 Gait Persons Needed: 1 Gait Assistive Device: Handheld Assist slightly unsteady, needs steadying assist Exercises Seated Therapy Exercises: Ankle pumps, Long arc quads Seated Reps: 20 Treatments transfers, ambulation, LE strengthening Assessment Current Status: Fair Progress improving ambulation and endurance, patient states she feels a lot better today PT Assisted Goals Director Of Special Education Goals PT Director Of Special Education Goals Time Frame: May 02, 2022 Roll Left & Right (QC): 6 Sit to Lying (QC): 6 Lying-Sitting on Side/Bed(QC): 6 Sit to Stand (QC): 6 Chair/Ced-vs-Rgjun Xfer(QC): 6 Toilet Transfer (QC): 6 Does the Patient Walk: Yes Walk 10 feet (QC): 6 Walk 50ft with 2 Turns (QC): 6 Walk 150 ft (QC): 6 Walking 10ft on Uneven Surface: 6 1 Step (curb) (QC): 6 4 Steps (QC): 6 12 Steps (QC): 9 Picking up an Object (QC): 6 Does the Pt use WC or Scooter?: No Wheel 50 feet with 2 turns (QC: 9 Wheel 150 feet: 9 PT Plan Problem List Problem List: Activity Tolerance, Functional Strength, Safety, Balance, Gait, Transfer, Bed Mobility, ROM Treatment/Plan Treatment Plan: Continue Plan of Care Treatment Plan: Bed Mobility, Education, Functional Activity Gely, Functional Strength, Gait, Safety, Therapeutic Exercise, Transfers Treatment Duration: May 02, 2022 Frequency: 6 times per week Estimated Hrs Per Day: .25 hour per day Patient and/or Family Agrees t: Yes Safety Risks/Education Patient Education: Gait Training, Transfer Techniques, Correct Positioning, Safety Issues Teaching Recipient: Patient Teaching Methods: Demonstration, Discussion Response to Teaching: Reinforcement Needed Time Time In: 1259 Time Out: 1310 DATE: Apr 26, 2022 Total Billed Treatment Time: 11 Total Billed Treatment 1 visit FA 11' ULYSSES LIZARRAGA PT Apr 26, 2022 13:15
[2022-04-26 15:52] VITALS: BP 134/71
[2022-04-26] MEDS: RT-ALBUTEROL SULF 2.5 MG/3 ML PRE-MIX VIAL INH SCH ×2 (16:53→19:09)
[2022-04-26] MEDS: AZITHROMYCIN INJECTION 500 MG in NS (IVPB) 250 ML IV SCH (17:35)
[2022-04-26] MEDS: ENOXAPARIN 40 MG/0.4 ML (LOVENOX) SYR SC SCH (17:35)
[2022-04-26 19:24] VITALS: BP 99/61
[2022-04-26] MEDS: OSELTAMIVIR 75 MG (TAMIFLU) CAPSULE PO SCH (21:00)
[2022-04-27 00:06] VITALS: BP 123/60
[2022-04-27] MEDS: RT-ALBUTEROL SULF 2.5 MG/3 ML PRE-MIX VIAL INH SCH ×2 (00:46→17:01)
[2022-04-27 04:45] VITALS: BP 126/65
[2022-04-27 06:06] LABS: BASOPHILS % (AUTO) 0 % (0-10); EOSINOPHILS % (AUTO) 0 % (0-10); HEMATOCRIT 34 % (35-52); HEMOGLOBIN 10.8 g/dL (11.5-16.0); LYMPHOCYTES # (AUTO) 0.7 10^3/uL (1.0-4.0); LYMPHOCYTES % (AUTO) 11 % (12-44); MEAN CORPUSCULAR HEMOGLOBIN 31 pg (25-34); MEAN CORPUSCULAR HGB CONC 32 g/dL (32-36); MEAN CORPUSCULAR VOLUME 96 fL (80-99); MEAN PLATELET VOLUME 10.8 fL (9.0-12.2); MONOCYTES # (AUTO) 0.6 10^3/uL (0.0-1.0); MONOCYTES % (AUTO) 8 % (0-12); NEUTROPHILS # (AUTO) 5.2 10^3/uL (1.8-7.8); NEUTROPHILS % (AUTO) 80 % (42-75); PLATELET COUNT 185 10^3/uL (130-400); WHITE BLOOD COUNT 6.5 10^3/uL (4.3-11.0)
[2022-04-27 06:23] LABS: ALBUMIN 3.2 GM/DL (3.2-4.5); BILIRUBIN,TOTAL 0.4 MG/DL (0.1-1.0); CALCIUM 8.5 MG/DL (8.5-10.1); CREATININE SERUM 0.84 MG/DL (0.60-1.30); POTASSIUM 3.4 MMOL/L (3.6-5.0); TOTAL PROTEIN 5.8 GM/DL (6.4-8.2)
[2022-04-27] MEDS: LEVOTHYROXINE 75 MCG (LEVOTHROID) TABLET PO SCH (06:56)
[2022-04-27 07:41] VITALS: BP 171/76
[2022-04-27] MEDS: ASPIRIN E.C. 81 MG (ECOTRIN) TAB PO SCH (09:01)
[2022-04-27] MEDS: OSELTAMIVIR 75 MG (TAMIFLU) CAPSULE PO SCH (09:01)
[2022-04-27] MEDS: MICONAZOLE 2% POWDER (DESENEX AF) 90 GM TOP SCH (09:02)
[2022-04-27] MEDS: DOCUSATE SODIUM 100 MG (COLACE) CAP PO SCH (09:05)
[2022-04-27] MEDS: SENNOSIDES 8.6 MG (SENOKOT) TAB PO SCH (09:05)
--- NOTE | 2022-04-27 10:58 | Occupational Ther Daily Note ---
OT Current Status-Daily Note Subjective Pt in bed, alert. Pt agrees to therapy. Pt c/o no pain. Pt displays increased weakness and stability today. Mental Status/Objective Patient Orientation: Person, Place, Time, Situation ADL-Treatment Pt ambulated to bathroom CGA. Pt completed toilet transfer and hygiene independently. Pt stood at sink and performed oral hygiene independently. Pt independent for bed mobility but displayed increased weakness and took an extended amount of time. Bed adjustments made to assist with bed mobility. Made comfortable in bed at end of session. Call light phone in reach. All needs met in room. Therapy Code Descriptions/Definitions Functional [place] Measure: 0=Not Assessed/NA 4=Minimal Assistance 1=Total Assistance 5=Supervision or Setup 2=Maximal Assistance 6=Modified [place] 3=Moderate Assistance 7=Complete IndependenceSCALE: Activities may be completed with or without assistive devices. 0-Tnmgxmgtaf-iuxuwhq completes the activity by him/herself with no assistance from a helper. 5-Set-up or Clean-up Assistance-helper sets up or cleans up; patient completes activity. [place] assists only prior to or following the activity. 4-Supervision or Touching Assistance-helper provides verbal cues and/or touching/steadying and/or contact guard assistance as patient completes activity. Assistance may be provided throughout the activity or intermittently. 3-Partial/Moderate Assistance-helper does LESS THAN HALF the effort. [place] lifts, holds or supports trunk or limbs, but provides less than half the effort. 2-Substantial/Maximal Assistance-helper does MORE THAN HALF the effort. [place] lifts or holds trunk or limbs and provides more than half the effort. 5-Inhyozldj-tronpg does ALL the effort. Patient does none of the effort to complete the activity. Or, the assistance of 2 or more helpers is required for the patient to complete the activity. If activity was not attempted, code reason: 7-Patient Refused. 9-Not Applicable-not attempted and the patient did not perform the activity before the current illness, exacerbation or injury. 10-Not Attempted due to Environmental Limitations-(lack of equipment, weather restraints, etc.). 88-Not Attempted due to Medical Conditions or Safety Concerns. Oral Hygiene (QC): 6 Toileting Hygiene (QC): 6 Toilet Transfer (QC): 6 OT Senior Php Software Developer Goals Group Home Goals Time Frame: May 11, 2022 Oral Hygiene (QC): 6 Toileting Hygiene (QC): 6 Shower/Bathe Self (QC): 5 Upper Body Dressing (QC): 6 Lower Body Dressing (QC): 6 On/Off Footwear (QC): 6 Additional Goals: 1-Demonstrate ADL Tasks, 2-Verbalize Understanding, 3- ImproveStrength/Gely 1=Demonstrate adherence to instructed precautions during ADL tasks. 2=Patient will verbalize/demonstrate understanding of assistive devices/modifications for ADL. 3=Patient will improve strength/tolerance for activity to enable patient to perform ADL's. OT Education/Plan Problem List/Assessment Assessment: Decreased Activ Tolerance Discharge Recommendations Plan/Recommendations: Continue POC Treatment Plan/Plan of Care Patient would benefit from OT for education, treatment and training to promote independence in ADL's, mobility, safety and/or upper extremity function for ADL's. Plan of Care: ADL Retraining, Functional Mobility, Group Exercise/Act as Ind, UE Funct Exercise/Act Treatment Duration: May 11, 2022 Frequency: 3 times per week (3-5 x/week) Estimated Hrs Per Day: .25 hour per day Agreement: Yes Rehab Potential: Fair Time Start Time: 10:46 Stop Time: 11:04 DATE: Apr 27, 2022 Total Time Billed (hr/min): 16 Billed Treatment Time 1 visit-ADL 1 (16 min) YOLY DARBY Apr 27, 2022 10:57
[2022-04-27 11:34] VITALS: BP 171/79
[2022-04-27] MEDS ORDERED: AZIT250T12 PO (11:46)
[2022-04-27] MEDS ORDERED: OSLT75C PO (11:47)
--- NOTE | 2022-04-27 11:48 | Discharge Summary ---
Discharge Summary Hospital Course Was the Problem List Reviewed?: Yes Problems/Dx: (1) Troponin level elevated (2) Coronary artery disease without angina pectoris Status: Chronic Qualifiers: (3) Influenza A Status: Acute Hospital Course Date of Admission: Apr 24, 2022 at 16:36 Admission Diagnosis : Family Physician/Provider: No,Local Physician Date of Discharge: 04/27/22 Discharge Diagnosis: [ ] Hospital Course: Pt had an uneventful 3 day hospital course after she was assessed to have Influenza B and NSTEMI. Aspirin therapy was recommended by cardiology. She did require Azithromycin for bronchitis with wheezing. She had a dramatic improvement in her symptoms and she was discharged in improved condition. Labs and Pending Lab Test: Laboratory Tests 04/27/22 05:42: White Blood Count 6.5, Red Blood Count 3.54L, Hemoglobin 10.8L, Hematocrit 34L, Mean Corpuscular Volume 96, Mean Corpuscular Hemoglobin 31, Mean Corpuscular Hemoglobin Concent 32, Red Cell Distribution Width 12.8, Platelet Count 185, Mean Platelet Volume 10.8, Immature Granulocyte % (Auto) 1, Neutrophils (%) (Auto) 80H, Lymphocytes (%) (Auto) 11L, Monocytes (%) (Auto) 8, Eosinophils (%) (Auto) 0, Basophils (%) (Auto) 0, Neutrophils # (Auto) 5.2, Lymphocytes # (Auto) 0.7L, Monocytes # (Auto) 0.6, Eosinophils # (Auto) 0.0, Basophils # (Auto) 0.0, Immature Granulocyte # (Auto) 0.0, Sodium Level 141, Potassium Level 3.4L, Chloride Level 106, Carbon Dioxide Level 24, Anion Gap 11, Blood Urea Nitrogen 17, Creatinine 0.84, Estimat Glomerular Filtration Rate 73, BUN/Creatinine Ratio 20, Glucose Level 106H, Calcium Level 8.5, Corrected Calcium 9.1, Total Bilirubin 0.4, Aspartate Amino Transf (AST/SGOT) 23, Alanine Aminotransferase (ALT/SGPT) 21, Alkaline Phosphatase 49, Total Protein 5.8L, Albumin 3.2 Microbiology 04/25/22 Gram Stain - Final, Resulted 04/25/22 Sputum Culture - Preliminary, Resulted Culture In Progress Home Meds Active Azithromycin 250 Mg Tablet 250 Mg PO DAILY Aspirin EC (Aspirin) 81 Mg Tablet.dr 81 Mg PO DAILY Reported Levothyroxine Sodium 75 Mcg Tablet 75 Mcg PO DAILY Assessment/Pt Instructions PCP 1 week Discharge Planning: <30 minutes discharge planning Discharge Instructions Discharge Diet: No Restrictions Discharge Physical Examination Vital Signs Vital Signs Date Time Temp Pulse Resp B/P (MAP) Pulse Ox O2 Delivery O2 Flow Rate FiO2 04/27/22 11:34 37.4 82 18 171/79 (109) 93 Nasal Cannula 2.00 04/25/22 06:22 28 General Appearance: No Apparent Distress, WD/WN Respiratory: No Accessory Muscle Use, No Respiratory Distress, Wheezing Allergies: Coded Allergies: Nedroie-PBA-RyL Reductase Inhibitor (Verified Allergy, Unknown, 04/24/22) Discharge Summary Date of Admission Apr 24, 2022 at 16:36 Date of Discharge Discharge Date: Apr 26, 2022 Admission Diagnosis AMS Discharge Diagnosis Azithromycin Nebulizers (1) Troponin level elevated Assessment & Plan: She has borderline elevation of the troponin level that then became undetectable. She is not having any symptoms of angina and there are no ischemic changes on her electrocardiogram. She has normal ejection fraction noted on her echocardiogram. I do not think she had a non-ST elevation myocardial infarction. I recommend she be started on low strength aspirin. Her cholesterol level is very low on no statin medication. At some point, we may want to consider an ischemic evaluation but this could certainly be done as an outpatient. (2) Coronary artery disease without angina pectoris Status: Chronic Assessment & Plan: She had previous coronary bypass surgery in 2008. She does not recall how many bypasses grafts she had nor does she recall what hospital she had surgery. She has not seen a director aeronautics commission in many years. She just barely started seeing a primary care provider about 1 month ago. As above, I recommend she be started on low strength aspirin. I do not see any indication for beta-mei at this time. Given her very low LDL level, I am not sure she would see much benefit from a statin medication. In light of the borderline abnormal troponin levels, I recommended nuclear stress test following discharge. Qualifiers: (3) Influenza A Status: Acute Assessment & Plan: This is being managed by the hospitalist. Unclear whether or not this had anything to do with her elevated troponin level. Clinical Quality Measures DVT/VTE Risk/Contraindication: VTE Addressed: Yes VTE Present on Admission: No YESY LANDRY DO Apr 27, 2022 11:48
[2022-04-27] MEDS ORDERED: OSELTAMIVIR 75 MG (TAMIFLU) CAPSULE PO SCH (12:00)
[2022-04-27] MEDS ORDERED: RELABEL FOR HOME USE MC SCH (12:00)
--- NOTE | 2022-04-27 14:25 | Physical Therapy Daily Note ---
PT Daily Note-Current Subjective Pt. in bed, family in recliner near by. Pt. on O2 on short cannula on 3 L O2. Pt. needs much explanation but agrees to try some activity. During Rx pt. required much explanation for all of Rx, ie TRFs, toileting and gait Pain Location: No Pain Reported Section J - Health Conditions 1. Rarely or not at all 2. Occasionally 3. Frequently 4. Almost constantly 8. Unable to answer Pain Effect on Sleep: 2 Pain Interference with Therapy: 2 Pain Interference w/Day-to-Day: 2 Appearance audible breath sounds, crackling, wheezes occas as well as pt uses voice on exhale Mental Status Patient Orientation: Confused (questionable, never audibly answered questions and needed much explanaition for every thing) Attachments: Oxygen (3L) pts O2 cannula was not long enough to reach bthrm and pt did not have walker in room. longer cannula and FWW were obtained to assist pt with energy conservation and ability to use O2 while walking to her bthrm in room Transfers SCALE: Activities may be completed with or without assistive devices. 1-Vijnxtqoiz-wyvebpl completes the activity by him/herself with no assistance from a helper. 5-Set-up or Clean-up Assistance-helper sets up or cleans up; patient completes activity. Lincoln assists only prior to or following the activity. 4-Supervision or Touching Assistance-helper provides verbal cues and/or touching/steadying and/or contact guard assistance as patient completes activity. Assistance may be provided throughout the activity or intermittently. 3-Partial/Moderate Assistance-helper does LESS THAN HALF the effort. Lincoln lifts, holds or supports trunk or limbs, but provides less than half the effort. 2-Substantial/Maximal Assistance-helper does MORE THAN HALF the effort. Lincoln lifts or holds trunk or limbs and provides more than half the effort. 7-Oblsrmpnc-xhijwv does ALL the effort. Patient does none of the effort to com plete the activity. Or, the assistance of 2 or more helpers is required for the patient to complete the activity. If activity was not attempted, code reason: 7-Patient Refused. 9-Not Applicable-not attempted and the patient did not perform the activity before the current illness, exacerbation or injury. 10-Not Attempted due to Environmental Limitations-(lack of equipment, weather restraints, etc.). 88-Not Attempted due to Medical Conditions or Safety Concerns. Roll Left & Right (QC): 6 Lying to Sitting/Side of Bed(Q: 6 Sit to Stand (QC): 4 Chair/Kdc-gw-Oirni Xfer(QC): 4 Toilet Transfer (QC): 4 pt. needed demonstration and education to use FWW and for all function ie pants up down, cleansing, reaching for rails and sit to stand safety as well as turning as using FWW safely, leaning on it somewhat for energy conservation etc Weight Bearing Right Lower Extremity: Right Full Weight Bearing Left Lower Extremity: Left Full Weight Bearing Gait Training Does the Patient Walk?: Yes Walk 10 feet (QC): 4 Walk 50 ft with 2 Turns(QC): 4 Gait Persons Needed: 1 Gait Assistive Device: FWW initial use of FWW which will be helpful for energy conservation . Nurse entered room during Rx and took O2 off pt . at this point pt was up ambulating to bthrm, as pt sat on toilet o2 sats on rm air were 83%, nurse did not reinstate O2 and left the room. Pt. was then assisted with rest of toileting and walked back to chair with family present, and call hunt insitu, O2 sats taken again at 84%. As this LIQUID COMPOUNDER left room I reported the nurse that the pt was up in recliner and that O2 had not been reinstated as she had previously left pt. Sat monitor on pts finger as This LIQUID COMPOUNDER left room Exercises Supine Ex: Ankle pumps, Rolling, Heel Slides, Hip abd/add Supine Reps: 10 Seated Therapy Exercises: Sit to stand, Long arc quads Seated Reps: 8 Treatments TRFs, gait, toileting, initial use of FWW for energy conservation Assessment Current Status: Fair Progress it appears to this LIQUID COMPOUNDER that pt is O2 dependent . and would also profit from use of FWW for energy conservation. Since nurse left O2 off pt purposely this LIQUID COMPOUNDER will discuss this situation with supervisig DPT PT Soda Tester Goals Shelter Goals PT Soda Tester Goals Time Frame: May 02, 2022 Roll Left & Right (QC): 6 Sit to Lying (QC): 6 Lying-Sitting on Side/Bed(QC): 6 Sit to Stand (QC): 6 Chair/Fgo-kz-Dnoqi Xfer(QC): 6 Toilet Transfer (QC): 6 Does the Patient Walk: Yes Walk 10 feet (QC): 6 Walk 50ft with 2 Turns (QC): 6 Walk 150 ft (QC): 6 Walking 10ft on Uneven Surface: 6 1 Step (curb) (QC): 6 4 Steps (QC): 6 12 Steps (QC): 9 Picking up an Object (QC): 6 Does the Pt use WC or Scooter?: No Wheel 50 feet with 2 turns (QC: 9 Wheel 150 feet: 9 PT Plan Treatment/Plan Treatment Plan: Continue Plan of Care Treatment Plan: Bed Mobility, Education, Functional Activity Gely, Functional Strength, Gait, Safety, Therapeutic Exercise, Transfers Treatment Duration: May 02, 2022 Frequency: 6 times per week Estimated Hrs Per Day: .25 hour per day Patient and/or Family Agrees t: Yes Safety Risks/Education Patient Education: Gait Training, Transfer Techniques, Correct Positioning, Disease Process, Safety Issues Teaching Recipient: Patient Teaching Methods: Demonstration, Discussion Response to Teaching: Unable to Return Demonstration, Unable to Comprehend, Reinforcement Needed Time Time In: 1400 Time Out: 1425 DATE: Apr 27, 2022 Total Billed Treatment Time: 25 Total Billed Treatment 1,GT13,FA12 ARTHUR CLINTON LIQUID COMPOUNDER Apr 27, 2022 14:25
[2022-04-27 15:56] VITALS: BP 85/52
[2022-04-27] MEDS: AZITHROMYCIN INJECTION 500 MG in NS (IVPB) 250 ML IV SCH (16:46)
[2022-04-27 18:20] VITALS: BP 85/52
== END 2022-04-27 12:16 | disposition home or self-care (01) ==
LOC: EDUNIT# 15:25 → ER 15:27 → CSD 16:36 → UNDOADMOB 16:36 → CSD 17:50 → 4TH 04-25 12:42 → UNDODISOB 04-27 12:16
PROVIDERS: ADMIT Internal Medicine; ATTEND Internal Medicine
DX: I21.4 Non-ST elevation (NSTEMI) myocardial infarction (principal); J10.1 Influenza due to other identified influenza virus with other respiratory manifestations; Z87.891 Personal history of nicotine dependence
CPT/HCPCS: 51701; 70450; 71045; 73502; 80053 ×4; 80061; 80306; 81000; 83690; 83735; 84443; 84484 ×2; 85025 ×4; 85610; 87070; 87205; 93005 ×4; 94640 ×2; 94760; 94761; 96372 ×3; 96375; 96376; 97116; 97162; 97166; 97530 ×2; 97535 ×2; 99284; C8929; G0378 ×2; 36415; 93306

== ENCOUNTER → 2022-05-24 | Outpatient (CLI) | payer MEDICARE ==
[~2022-05-24] VITALS: Ht 157 cm; Wt 113.0 kg
[~2022-05-24] MED LIST: ASPI-1238 PO; AZIT250T12 PO; CATHETER FLUSH 10 ML SYR IVP PRN; LEVO75TA6 PO; OSLT75C PO; REGADENOSON 0.4 MG/5 ML SYR (LEXISCAN) IV ONE
[2022-05-24 13:10] VITALS: BP 211/115
--- NOTE | 2022-05-24 16:07 | NUCLEAR STRESS TEST ---
REGADENOSON NUCLEAR STRESS Date of procedure: 05/24/2022. Primary care provider: No local physician Admitting physician: Rubén Sotelo Jr., MD. INDICATION: Coronary artery disease with angina pectoris. BASELINE ELECTROCARDIOGRAM: Sinus rhythm with left and right atrial abnormalities and nonspecific ST-T wave changes. STRESS TEST PROCEDURE: The patient was administered 0.4 mg of intravenous Regadenoson. The resting heart rate was 84 bpm and the peak heart rate was 93 bpm. The resting blood pressure was 211/115 mmHg and the minimum blood pressure was 128/77 mmHg. This represents a normal heart rate and a normal blood pressure response to Regadenoson with resting hypertension. The test was stopped due to the protocol. There was no chest discomfort during the test. There were no arrhythmias during the test. There were no significant stress induced electrocardiogram changes. NUCLEAR PROCEDURE: The patient was administered 8.6 mCi of intravenous technetium 99m Tetrofosmin at rest for the rest images. The patient was subsequently administered 23.8 mCi of intravenous technetium 99m Tetrofosmin at peak stress for the stress images. Following an appropriate wait after each injection, imaging was obtained. The images were subsequently processed and reformatted in the usual views. Gated imaging was obtained. The image quality was adequate with a mild degree of gastrointestinal attenuation artifact. CT attenuation correction was used as a adjunct to standard imaging. Both the inga ected and uncorrected images were reviewed for interpretation. NUCLEAR RESULTS: There was normal myocardial perfusion in all segments without evidence of infarction or ischemia. There was normal left ventricular chamber size with an end-diastolic volume of 26 mL and an end-systolic volume of 8 mL. There was no evidence of transient ischemic dilatation. The TID ratio was 0.82. There was normal wall motion in all segments with a calculated ejection fraction of 69%. IMPRESSION: 1. Normal heart rate and blood pressure response to regadenoson with resting hypertension. 2. There was no chest discomfort, arrhythmias, or electrocardiogram changes during the test. 3. There was normal myocardial perfusion in all segments without evidence of infarction or ischemia. 4. There was normal wall motion in all segments with a calculated ejection fraction of 69%. Certain portions of this document may have been dictated utilizing voice recognition technology. Inherent to this technology, typographical and grammatical errors may exist. As much as I am diligent to identify and correct these mistakes, some errors may remain in the document. RUBÉN SOTELO JR, MD May 24, 2022 16:07
== END ==
LOC: CARD 11:42
PROVIDERS: ATTEND Internal Medicine Cardiovascular Disease
DX: I25.118 Atherosclerotic heart disease of native coronary artery with other forms of angina pectoris (principal)
CPT/HCPCS: 78452; 93017; A9502

== ENCOUNTER 2023-02-26 15:25 | Outpatient (CLI) | payer MEDICARE ==
[~2023-02-26] VITALS: Ht 157.5 cm; Wt 56.8 kg
[~2023-02-26 15:25] MED LIST changes: -CATHETER FLUSH 10 ML SYR IVP PRN; -REGADENOSON 0.4 MG/5 ML SYR (LEXISCAN) IV ONE
[2023-02-27] MEDS ORDERED: MULT-1136 PO (10:34)
== END 2023-02-27 10:42 | disposition home or self-care (01) ==
LOC: PREOP 15:25
PROVIDERS: ATTEND Specialist
DX: Z01.818 Encounter for other preprocedural examination (principal)

== ENCOUNTER 2023-03-01 10:59 | Day surgery (SDC) | payer MEDICARE ==
[~2023-03-01] VITALS: Ht 157.5 cm; Wt 56.8 kg
[~2023-03-01 10:59] MED LIST changes: +MULT-1136 PO
[2023-03-01] MEDS ORDERED: LIDOCAINE PF 1% 2 ML VIAL IR PRN (11:45)
[2023-03-01] MEDS ORDERED: POVIDONE IODINE OPHTH SOLN 5% 30 ML OP ONE (11:45)
[2023-03-01] MEDS ORDERED: TIMOLOL 0.5% (CATARACTS) 0.3 ML BTL OU PRN (11:45)
[2023-03-01] MEDS ORDERED: MOXIFLOXACIN OPHTH SOLN 5 MG/ML 0.3 ML SYRINGE OP ONE (11:45)
[2023-03-01] MEDS: TETRACAINE 0.5% OPHTH SOLN 4 ML BTL (SINGLE DOSE ONLY) OU PRN ×4 (11:46→12:05)
[2023-03-01] MEDS: PHENYLEPHRINE 10% OPHTH SOLN 5 ML BTL OU SCH ×3 (11:52→12:06)
[2023-03-01] MEDS: TROPICAMIDE 1% OPH SOLN (MYDRIACYL) 15 ML BTL OP SCH ×3 (11:52→12:05)
[2023-03-01 12:09] VITALS: BP 197/112
[2023-03-01] MEDS ORDERED: MIDAZOLAM INJ 2 MG/2 ML VIAL ONE (12:13)
--- NOTE | 2023-03-01 12:26 | Ophthalmologist Pre-Op Note ---
Pre-Operative Progress Note H&P Reviewed The H&P was reviewed, patient examined and no changes noted. Date H&P Reviewed: Mar 01, 2023 Time H&P Reviewed: 12:26 Pre-Op Dx Cataract, Right Eye NETTIE ROSENBERG MD Mar 01, 2023 12:26
--- NOTE | 2023-03-01 13:09 | Ophthalmology Operative Report ---
Cataract removal/placement IOL PREOPERATIVE DIAGNOSIS: Cataract Right Eye POSTOPERATIVE DIAGNOSIS: Cataract Right Eye PROCEDURE: Cataract removal and placement of posterior chamber implant, right eye SURGEON: Hunter Rosenberg ANESTHESIA: Topical with sedation COMPLICATIONS: None ESTIMATED BLOOD LOSS: Minimal DESCRIPTION OF PROCEDURE: After proper informed consent was obtained, the patient, a 77 female, was taken to the Operating Room and the right eye was anesthetized with tetracaine. The right eye was then prepped and draped in the usual manner. A wire lid speculum was placed. A paracentesis was made at the left hand position. Preservative free lidocaine was injected into the anterior chamber followed by viscoelastic. A clear corneal incision was made in the temporal position. A capsulorrhexis was preformed and the central nuclear and cortical material were removed. The posterior capsule was polished and Calin 24.0 AU00T0 IOL was placed into the capsular bag. The residual viscoelastic was aspirated and balanced saline solution was injected into the anterior chamber. Moxifloxacin was injected into the anterior chamber. The wound was checked and found to be water tight. The patient tolerated the procedure well without complications. HUNTER ROSENBERG MD Mar 01, 2023 13:09
[2023-03-01 13:13] VITALS: BP 199/123
== END 2023-03-01 13:14 | disposition home or self-care (01) ==
LOC: SDC 10:59
PROVIDERS: ATTEND Specialist
DX: H25.9 Unspecified age-related cataract (principal)
CPT/HCPCS: 66984; V2632

== ENCOUNTER 2023-03-05 10:07 | Outpatient (CLI) | payer MEDICARE | END 2023-03-05 14:33 | disposition home or self-care (01) | LOC: PREOP 10:07 | PROVIDERS: ATTEND Specialist | DX: Z01.818 Encounter for other preprocedural examination (principal) ==

== ENCOUNTER 2023-03-14 15:11 | Emergency (ER) | payer MEDICARE ==
[~2023-03-14] VITALS: Ht 162.5 cm; Wt 78.0 kg
[2023-03-14] MEDS ORDERED: LABETALOL 5 mg/ml 4 ML SINGLE DOSE SYRINGE IV ONE (16:15)
--- NOTE | 2023-03-14 16:17 | ED Cardiac General ---
History of Present Illness General Chief Complaint: Cardiac/General Problems Stated Complaint: HBP, FATIGUE Nursing Triage Note: ARRIVES FROM [facility] WITH A C/O HTN. WAS TOLD TO COME HERE BECAUSE HER BLOOD PRESSURE WAS HIGH. STATES IT HAS BEEN HIGH FOR THE LAST FEW DAYS SO SHE WENT TO THE CLINIC TO GET IT CHECKED. Source: patient Exam Limitations: no limitations History of Present Illness Date Seen by Provider: Mar 14, 2023 Time Seen by Provider: 16:00 Initial Comments 77-year-old female presents to the ER for elevated blood pressure. Patient was seen at [facility] today and was sent here for elevated blood pressure. She reports that she had a cataract surgery done recently, and states that the provider found her blood pressure to be elevated after the procedure. She is supposed to have cataract surgery on the other eye, but he states he will not do it unless her blood pressure is improved. She reports that she has been checking her blood pressure at home, states her only complaint is feeling tired. Patient denies history of hypertension. Denies any other medical history, does not take any medications regularly. She did have open heart surgery at [facility] many years ago, but is uncertain why she had the procedure or what they did. She denies current headache, dizziness, chest pain, shortness of air, blurred vision. Allergies and Home Medications Allergies Coded Allergies: Jzbnphv-PAO-RwB Reductase Inhibitor (Verified Allergy, Unknown, 03/05/23) Patient Home Medication List Home Medication List Reviewed: Yes Amlodipine Besylate (Amlodipine Besylate) 5 Mg Tablet, 5 MG PO DAILY Prescribed by: Krystyna Tan on 03/14/23 5018 Multivitamin (Multivitamin) 1 Each Tablet, 1 EACH PO DAILY, (Reported) Entered as Reported by: Ally Benson on 02/27/23 1034 Review of Systems Review of Systems Constitutional: see HPI Past Jkuwvzk-Jgfvec-Twkyje Hx Patient Social History Tobacco Use?: No Use of E-Cig and/or Vaping dev: No Substance use?: No Alcohol Use?: No Pt feels they are or have been: No Immunizations Up To Date Influenza Vaccine Up-to-Date: No; Not Current First/Initial COVID19 Vaccinat: NOT VAC Past Medical History Surgery/Hospitalization HX: [facility] HX "OPEN HEART SURGERY" Surgeries: Yes CABG Coronary Artery Disease Reproductive Disorders: No Hypothyroidsim Family Medical History Heart Disease Physical Exam Vital Signs Vital Signs - First Documented 03/14/23 15:53 Temp 36.8 Pulse 84 Resp 18 B/P (MAP) 198/115 (142) Pulse Ox 95 O2 Delivery Room Air Capillary Refill : Less Than 3 Seconds Height, Weight, BMI Height: '" Weight: lbs. oz. kg; 29.00 BMI Method: General Appearance: No Apparent Distress, WD/WN Neck: Normal Inspection, Supple Respiratory: Lungs Clear, Normal Breath Sounds, No Accessory Muscle Use, No Respiratory Distress Cardiovascular: Regular Rate, Rhythm Extremity: Normal Inspection, Normal Range of Motion Neurologic/Psychiatric: Alert, Normal Mood/Affect Skin: Normal Color, Warm/Dry Progress/Results/Core Measures Results/Orders Lab Results Laboratory Tests Test 03/14/23 16:20 Range/Units White Blood Count 8.1 4.3-11.0 10^3/uL Red Blood Count 3.98 3.80-5.11 10^6/uL Hemoglobin 12.3 11.5-16.0 g/dL Hematocrit 38 35-52 % Mean Corpuscular Volume 96 80-99 fL Mean Corpuscular Hemoglobin 31 25-34 pg Mean Corpuscular Hemoglobin Concent 32 32-36 g/dL Red Cell Distribution Width 12.9 10.0-14.5 % Platelet Count 247 130-400 10^3/uL Mean Platelet Volume 10.4 9.0-12.2 fL Immature Granulocyte % (Auto) 0 % Neutrophils (%) (Auto) 76 H 42-75 % Lymphocytes (%) (Auto) 16 12-44 % Monocytes (%) (Auto) 6 0-12 % Eosinophils (%) (Auto) 1 0-10 % Basophils (%) (Auto) 0 0-10 % Neutrophils # (Auto) 6.1 1.8-7.8 X 10^3 Lymphocytes # (Auto) 1.3 1.0-4.0 X 10^3 Monocytes # (Auto) 0.5 0.0-1.0 X 10^3 Eosinophils # (Auto) 0.1 0.0-0.3 10^3/uL Basophils # (Auto) 0.0 0.0-0.1 10^3/uL Immature Granulocyte # (Auto) 0.0 0.0-0.1 10^3/uL Sodium Level 139 135-145 MMOL/L Potassium Level 4.4 3.6-5.0 MMOL/L Chloride Level 102 98-107 MMOL/L Carbon Dioxide Level 27 21-32 MMOL/L Anion Gap 10 5-14 MMOL/L Blood Urea Nitrogen 24 H 7-18 MG/DL Creatinine 1.21 0.60-1.30 MG/DL Estimat Glomerular Filtration Rate 47 BUN/Creatinine Ratio 20 Glucose Level 95 70-105 MG/DL Calcium Level 9.5 8.5-10.1 MG/DL Corrected Calcium 9.3 8.5-10.1 MG/DL Magnesium Level 2.5 H 1.6-2.4 MG/DL Total Bilirubin 0.4 0.1-1.0 MG/DL Aspartate Amino Transf (AST/SGOT) 15 5-34 U/L Alanine Aminotransferase (ALT/SGPT) 14 0-55 U/L Alkaline Phosphatase 65 40-136 U/L Total Protein 6.8 6.4-8.2 GM/DL Albumin 4.2 3.2-4.5 GM/DL My Orders Orders - KRYSTYNA MALONEY APRN Cbc And Automated Diff (03/14/23 16:11) Magnesium (03/14/23 16:11) Comprehensive Metabolic Panel (03/14/23 16:11) Monitor-Rhythm Ecg Trace Only (03/14/23 16:11) Ed Iv/Invasive Line Start (03/14/23 16:11) Labetalol Injection (Sdv) (Labetalol Inj (03/14/23 16:15) Ekg Tracing (03/14/23 16:11) Ns Iv 1000 Ml (Ns Iv 1000 Ml) (03/14/23 17:45) Amlodipine Tablet (Amlodipine Tablet) (03/14/23 18:30) Medications Given in ED Vital Signs/I&O 03/14/23 03/14/23 15:53 19:16 Temp 36.8 36.6 Pulse 84 73 Resp 18 16 B/P (MAP) 198/115 (142) 195/89 Pulse Ox 95 100 O2 Delivery Room Air Room Air 03/15/23 00:00 Intake Total 1000 ml Balance 1000 ml Blood Pressure Mean: 142 Progress Progress Note : Progress Note Patient seen and evaluated, resting comfortably in bed, no acute distress. Based on exam and symptoms, work-up initiated including CBC, CMP, magnesium, EKG. Labetalol ordered. 1911 Labs reviewed. CBC grossly normal. CMP shows elevated BUN 24, creatinine 1.21, GFR 47. Labs completed last April showed GFR of 73, and creatinine of 0.84. 1 L of IV fluids ordered. Patient's magnesium level was also slightly el evated 2.5. Patient's decreased kidney function could be due to dehydration, this also could be the cause of her hypertension. Patient had some improvement in her blood pressure after labetalol. Will give first-time dose of amlodipine, and discharge with prescription for amlodipine. Patient instructed to follow-up with primary care provider regarding her hypertension and decreased kidney function. Discharge instructions and return precautions provided. Initial ECG Impression Date: Mar 14, 2023 Initial ECG Impression Time: 16:26 Initial ECG Rate: 83 Initial ECG Rhythm: Normal Sinus Initial ECG Intervals: Normal Initial ECG Impression: Nonspecific Changes Initial ECG Comparisson: Unchanged Departure Impression Primary Impression: Hypertension Disposition: 01 HOME, SELF-CARE Condition: Stable Departure-Patient Inst. Decision time for Depature: 19:11 Referrals: [facility] [place] (PCP) Primary Care Physician NEO MALIN MD (Family) Primary Care Physician Patient Instructions: High Blood Pressure (DC) Add. Discharge Instructions: Take amlodipine once daily. You may notice some mild lower leg swelling. Follow-up with your primary care provider next week to have your kidney function labs redrawn. Return for severe headache, weakness on one side of your body, dizziness, blurry vision, chest pain, or any other new, concerning, or worsening symptoms. All discharge instructions reviewed with patient and/or family. Voiced understanding. Scripts Amlodipine Besylate (Amlodipine Besylate) 5 Mg Tablet 5 MG PO DAILY for 30 Days, #30 TAB 0 Refills Prov: KRYSTYNA MALONEY APRN 03/14/23 KRYSTYNA MALONEY APRN Mar 14, 2023 16:17
[2023-03-14 16:26] LABS: BASOPHILS % (AUTO) 0 % (0-10); EOSINOPHILS # (AUTO) 0.1 10^3/uL (0.0-0.3); EOSINOPHILS % (AUTO) 1 % (0-10); HEMATOCRIT 38 % (35-52); HEMOGLOBIN 12.3 g/dL (11.5-16.0); LYMPHOCYTES # (AUTO) 1.3 X 10^3 (1.0-4.0); LYMPHOCYTES % (AUTO) 16 % (12-44); MEAN CORPUSCULAR HEMOGLOBIN 31 pg (25-34); MEAN CORPUSCULAR HGB CONC 32 g/dL (32-36); MEAN CORPUSCULAR VOLUME 96 fL (80-99); MEAN PLATELET VOLUME 10.4 fL (9.0-12.2); MONOCYTES # (AUTO) 0.5 X 10^3 (0.0-1.0); MONOCYTES % (AUTO) 6 % (0-12); NEUTROPHILS # (AUTO) 6.1 X 10^3 (1.8-7.8); NEUTROPHILS % (AUTO) 76 % (42-75); PLATELET COUNT 247 10^3/uL (130-400); WHITE BLOOD COUNT 8.1 10^3/uL (4.3-11.0)
[2023-03-14 17:25] LABS: ALBUMIN 4.2 GM/DL (3.2-4.5); BILIRUBIN,TOTAL 0.4 MG/DL (0.1-1.0); CALCIUM 9.5 MG/DL (8.5-10.1); CREATININE SERUM 1.21 MG/DL (0.60-1.30); MAGNESIUM 2.5 MG/DL (1.6-2.4); POTASSIUM 4.4 MMOL/L (3.6-5.0); TOTAL PROTEIN 6.8 GM/DL (6.4-8.2)
[2023-03-14] MEDS ORDERED: NS IV 1000 ML 1,000 ML IV SCH (17:45)
[2023-03-14] MEDS ORDERED: AMLO-250 PO (18:29)
[2023-03-14] MEDS ORDERED: amLODIPine 5 MG TABLET PO ONE (18:30)
[2023-03-14 19:16] VITALS: BP 195/89
== END 2023-03-14 19:19 | disposition home or self-care (01) ==
LOC: EDUNIT# 15:11 → ER 15:13
DX: I10 Essential (primary) hypertension (principal)
CPT/HCPCS: 36415; 80053; 83735; 85025; 93005; 93041